=== PATIENT | male | born 1940 | race Caucasian/White ===

== ENCOUNTER 2024-12-25 19:21 | Inpatient (IN) ==
[2024-12-25 20:04] LABS: Hematocrit (blood only) 34.7 % (42.0-52.0); Hemoglobin 11.8 g/dl (14.0-18.0); Immature Granulocytes # (auto) 0.13 K/uL (0.01-0.20); Immature Granulocytes % (auto) 0.8 %; Mean Corpuscular Hemoglobin 34.1 pg (25.0-34.0); Mean Corpuscular Volume 100.3 fL (80.0-100.0); Platelet Count 301 K/uL (130-400); RDW Standard Deviation 50.4 fL (36.4-46.3); Red Blood Count 3.46 M/uL (4.70-6.10); White Blood Count 16.87 K/ul (4.8-10.8)
[2024-12-25 20:23] LABS: Anion Gap 10 (3-11); Blood Urea Nitrogen 40 mg/dl (6-23); Calcium 9.9 mg/dl (8.6-10.3); Carbon Dioxide 23 mmol/L (21-32); Chloride 97 mmol/L (98-107); Glucose 135 mg/dl (70-99(Fasting)); Potassium 4.5 mmol/L (3.5-5.1); Sodium 130 mmol/L (136-145)
[2024-12-25 20:30] LABS: Alanine Aminotransferase < 3 U/L (7-52); Albumin Globulin Ratio 0.9 (0.9-2); Albumin Level 3.6 gm/dl (3.4-5.0); Alkaline Phosphatase 83 U/L (34-104); Bilirubin,Total 1.0 mg/dl (0.2-1.0); Creatine Kinase 52 U/L (30-223); Globulin 3.9 gm/dl (2.5-4.0); Lipase 17 U/L (11-82); Total Protein 7.5 gm/dl (6.0-8.3)
--- NOTE | 2024-12-25 20:37 | CT Scan Report ---
Exam(s): CT HEAD Without Contrast EXAM: CT Head Without Intravenous Contrast CLINICAL HISTORY: Reason for exam: trauma. TECHNIQUE: Axial computed tomography images of the head/brain without intravenous contrast. CTDI is 35.65 mGy and DLP is 702.46 mGy-cm. Automated exposure control was utilized for the study. A dose lowering technique was utilized adhering to the principles of ALARA. Mild to moderate limited evaluation due to motion and technique. COMPARISON: None. FINDINGS: Brain: Small, subcortical right frontal infarct. No mass, edema, mass effect or acute infarct. No acute hemorrhage. Mild, chronic, nonspecific white matter disease. There is artifact limiting detail particularly in the posterior fossa. Ventricles: Ventriculomegaly and dilated temporal horns maybe on the basis of central atrophy, can not exclude a communicating hydrocephalus. Correlate clinically. No midline shift. Bones/joints: No skull fracture. Soft tissues: No scalp hematoma. Visualized Sinuses: Clear. Mastoid air cells: No mastoid effusion. IMPRESSION: 1. Nonspecific ventriculomegaly, query communicating hydrocephalus, versus atrophy with a central component. 2. Mild, chronic white matter disease and a small, chronic subcortical right frontal lobe infarct. 3. No skull fracture, bleed, or acute intracranial abnormality. Electronically signed by: Cyndi Banda M.D. 12/25/24 20:36 PM
--- NOTE | 2024-12-25 20:38 | XRay Report ---
Exam(s): XR PELVIS, 1-2 views EXAM: XR Pelvis, 1 or 2 Views CLINICAL HISTORY: Reason for exam: Trauma. TECHNIQUE: Frontal view of the pelvis. COMPARISON: No relevant prior studies available. FINDINGS: Bones/joints: Moderate degenerative change lower lumbar spine, sacroiliac and hip joints. No acute fracture. No dislocation. Soft tissues: Surgical clips and sutures right lower quadrant. IMPRESSION: 1. No fracture or acute bony abnormality. Electronically signed by: Cyndi Banda M.D. 12/25/24 20:37 PM
[2024-12-25 20:39] LABS: INR 1.1 (0.9-1.1); Partial Thromboplastin Time 31 Seconds (21-31); Prothrombin Time 11.5 Seconds (9.0-12.0)
[2024-12-25] MEDS: SODIUM CHLORIDE 0.9% 500 ML IV ONE (20:41)
--- NOTE | 2024-12-25 20:44 | XRay Report ---
Exam(s): XR CXR 1 VIEW EXAM: XR Chest, 1 View CLINICAL HISTORY: Reason for exam: Trauma. TECHNIQUE: Frontal view of the chest. COMPARISON: None. Reference is made to a follow-up chest CT. FINDINGS: Lungs/Pleural space: Emphysema. Mild, scattered interstitial thickening, nonspecific, maybe chronic. Small right mid lung granuloma. No focal consolidation, pleural fluid or pneumothorax. Heart: Moderate cardiomegaly. Mediastinum: Unremarkable. Bones/Soft Tissues: Left 4th rib fracture, mildly displaced. IMPRESSION: 1. LEFT 4th rib fracture. 2. Emphysema and presumed chronic scattered interstitial thickening in the lungs. 3. No pneumothorax or acute process in the chest. Electronically signed by: Cyndi Banda M.D. 12/25/24 20:43 PM
--- NOTE | 2024-12-25 20:58 | CT Scan Report ---
Exam(s): CT ABDOMEN + PELVIS Without Contrast EXAM: CT Abdomen and Pelvis Without Intravenous Contrast CLINICAL HISTORY: Reason for exam: trauma. TECHNIQUE: Axial computed tomography images of the abdomen and pelvis without intravenous contrast. CTDI is 11.31 mGy and DLP is 800.92 mGy-cm. Automated exposure control was utilized for the study. A dose lowering technique was utilized adhering to the principles of ALARA. Moderate limited evaluation due to arms in the field of view, external metal, breathing/motion and noncontrast technique. COMPARISON: None. FINDINGS: Liver: No injury. Gallbladder and bile ducts: Normal gallbladder. No ductal dilation. Pancreas: No ductal dilation. Spleen: No laceration. Adrenals: Unremarkable. Kidneys and ureters: No injury. Stomach and bowel: No obstruction. Intraperitoneal space: No free air or fluid. Bones/joints: No acute pelvic or vertebral fracture. Soft tissues: Probable 4-5 cm intramuscular gluteal hematoma on the right, though there is artifact from external metal, limiting evaluation. 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 Lymph nodes: No enlarged lymph nodes. Bladder: No injury. However, intermittent nodular density anterior midline mucosa, largest measuring 7 x 5 x 11 mm, nonspecific, could reflect normal variant anatomy, neoplasm not excluded. Reproductive: Unremarkable as visualized. IMPRESSION: 1. Right gluteal intramuscular hematoma. 2. Intermittent nodules anterior urinary bladder, nonspecific, could reflect normal variant anatomy, cystoscopy recommended to rule out neoplasm. 3. 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 4. No obvious signs to suggest posttraumatic injury in the abdomen or pelvis. 5. Moderate limited evaluation due to artifact and noncontrast technique. Electronically signed by: Cyndi Banda M.D. 12/25/24 20:58 PM
--- NOTE | 2024-12-25 21:03 | CT Scan Report ---
Exam(s): CT CHEST Without Contrast EXAM: CT Chest Without Intravenous Contrast CLINICAL HISTORY: Reason for exam: trauma. TECHNIQUE: Axial computed tomography images of the chest without intravenous contrast. CTDI is 11.31 mGy and DLP is 800.92 mGy-cm. Automated exposure control was utilized for the study. A dose lowering technique was utilized adhering to the principles of ALARA. Moderate artifact from bilateral arms in the field of view and breathing/motion. COMPARISON: Same day chest x-ray. FINDINGS: Lungs: 4 mm noncalcified pulmonary nodule right upper lobe anteriorly, axial 11/08. Since the nodule is smooth, no follow up necessary per Fleischner guidelines. Calcified granuloma right upper lobe. Emphysema and moderate scattered chronic interstitial thickening, predominantly lower lobe lungs. No consolidation. Pleural space: No effusion. No pneumothorax, with moderate limited evaluation for minimal disease due to artifact. Pulmonary arteries: No engorgement. Aorta: No aneurysm. Heart: Moderate cardiomegaly. No significant pericardial effusion. Bones/joints: LEFT 4th rib fracture mildly displaced. Nondisplaced left 3rd rib fracture. No other acute fracture. Soft tissues: Unremarkable. Lymph nodes: No enlarged lymph nodes. IMPRESSION: 1. No pneumothorax or acute intrathoracic abnormality. 2. LEFT 3rd and 4th rib fractures. 3. Emphysema and chronic interstitial lung disease. 4. 4 mm right upper lobe pulmonary nodule, no further workup needed. 5. Moderate motion/artifact limits evaluation. Electronically signed by: Cyndi Banda M.D. 12/25/24 21:02 PM
[2024-12-25 21:06] LABS: Appearance Urine Clear (Clear); Bacteria Urine Automated None Seen (None Seen); Cast Urine Automated >20 /lpf (0-2); Epithelial Cell Urine Auto 0-2 /hpf (0-2); Glucose Urine UA Negative (Negative); RBC Urine Automated 0-2 /hpf (0-2); WBC Urine Automated 0-5 /hpf (0-5)
[2024-12-25 21:37] LABS: Amphetamines+Metham, Urine Neg (Neg); MDMA (Ecstacy), Urine Neg (Neg); Marijuana, Urine Neg (Neg)
--- NOTE | 2024-12-25 21:55 | CT Scan Report ---
Exam(s): CT C SPINE EXAM: CT Cervical Spine Without Intravenous Contrast CLINICAL HISTORY: Reason for exam: Trauma. TECHNIQUE: Axial computed tomography images of the cervical spine without intravenous contrast. CTDI is 11.31 mGy and DLP is 800.92 mGy-cm. Automated exposure control was utilized for the study. A dose lowering technique was utilized adhering to the principles of ALARA. Mild motion artifact. COMPARISON: None. FINDINGS: Vertebrae: No acute fracture. Discs/spinal canal/neural foramina: Moderate to severe degenerative disc and facet disease. Soft tissues: Apical blebs and scarring on the right. IMPRESSION: 1. Moderate to severe degenerative change. 2. No fracture or acute bony abnormality. Electronically signed by: Cyndi Banda M.D. 12/25/24 21:54 PM
[2024-12-25] MEDS: SODIUM CHLORIDE 0.9% 1,000 ML IV SCH (23:41)
--- NOTE | 2024-12-25 23:58 | Emergency Department Note ---
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 Daughter states the patient has been falling more recently. She reports that the patient last fell yesterday. She states they went to an outside emergency department and did CT scans on her and discharged patient home. Daughter states the patient is too confused and weak. She states she is concerned the patient has a UTI. Daughter reports that the patient is DNR/DNI and she is the POA. Home Medications Medication Instructions Recorded Confirmed Type albuterol sulfate 90 mcg/actuation 2 inh inhalation Q4H PRN Shortness 12/25/24 12/25/24 History breath activated powder inhaler Of Breath Or Wheezing apixaban 5 mg tablet (Eliquis) 5 mg PO BID 12/25/24 12/25/24 History ascorbic acid (vitamin C) 250 mg 250 mg PO DAILY 12/25/24 12/25/24 History tablet carbidopa ER 50 mg-levodopa 200 mg 1 tab PO BID 12/25/24 12/25/24 History tablet,extended release carvedilol 3.125 mg tablet 3.125 mg PO BID 12/25/24 12/25/24 History cholecalciferol (vitamin D3) 50 50 mcg PO DAILY 12/25/24 12/25/24 History mcg (2,000 unit) tablet digoxin 125 mcg (0.125 mg) tablet 125 mcg PO HS 12/25/24 12/25/24 History fluticasone fur. 100 mcg-umeclid 1 inh inhalation DAILY 12/25/24 12/25/24 History 62.5 mcg-vilant 25 mcg inhalat.powder (Trelegy Ellipta) furosemide 40 mg tablet 40 mg PO DAILY 12/25/24 12/25/24 History glucosamine-chondroitin 250 mg-200 1 tab PO DAILY 12/25/24 12/25/24 History mg tablet lisinopril 2.5 mg tablet 2.5 mg PO DAILY 12/25/24 12/25/24 History multivitamin 1 tab PO DAILY 12/25/24 12/25/24 History niacin 1,000 mg tablet,extended 1,000 mg PO HS 12/25/24 12/25/24 History release 24 hr nitroglycerin 0.4 mg sublingual 0.4 mg sublingual UD 12/25/24 12/25/24 History tablet pantoprazole 40 mg tablet,delayed 40 mg PO DAILY 12/25/24 12/25/24 History release potassium chloride 10 mEq 10 meq PO DAILY 12/25/24 12/25/24 History tablet,extended release sertraline 100 mg tablet 100 mg PO DAILY 12/25/24 12/25/24 History simvastatin 40 mg tablet 40 mg PO HS 12/25/24 12/25/24 History Past Med/Surg History Problem List (Updated 12/26/24 @ 00:04 by Mukesh Hager MD) Frequent falls Medical History CAD (coronary artery disease) HLD (hyperlipidemia) Heart attack Parkinson disease Pneumothorax Atrial fibrillation Social History Smoking Status: Former smoker Tobacco Type: Cigarettes Preferred Language: Greenlandic Feels Safe at Home: Yes Physical Exam Vital Signs Vital Signs - 24 hr 12/25/24 19:29 12/25/24 19:54 12/25/24 19:54 Temperature 36.2 C L 36.5 C Temperature Source Temporal Artery Scan Pulse Rate 67 67 Pulse Rate [Apical] 67 Pulse Rate from SpO2 Sensor Pulse Rhythm Pulse Rhythm [Apical] Irregular Respiratory Rate 18 16 16 Respiratory Effort / Characteristics Non-Labored Spontaneous Non-Labored Spontaneous Respiratory Depth Normal Normal Respiratory Pattern Regular Regular Blood Pressure 93/55 L 129/62 Blood Pressure [Right Arm] 129/62 Blood Pressure Mean 67 Blood Pressure Mean [Right Arm] 84 Blood Pressure Position Sitting Pulse Oximetry 96 97 97 Oxygen Delivery Method Room Air Room Air Room Air Oxygen Flow Rate 0 Sepsis Recent Fever Within 48 Hours No Sepsis New/Unexplained Change in Mental Status No Sepsis Action Taken by Nursing No Action Required 12/25/24 19:54 12/25/24 20:18 12/25/24 20:20 Temperature Temperature Source Pulse Rate 57 L 61 Pulse Rate [Apical] Pulse Rate from SpO2 Sensor 71 59 L Pulse Rhythm Pulse Rhythm [Apical] Respiratory Rate 24 20 Respiratory Effort / Characteristics Respiratory Depth Respiratory Pattern Blood Pressure 105/40 L Blood Pressure [Right Arm] Blood Pressure Mean 69 Blood Pressure Mean [Right Arm] Blood Pressure Position Pulse Oximetry 83 L 99 Oxygen Delivery Method Oxygen Flow Rate Sepsis Recent Fever Within 48 Hours Sepsis New/Unexplained Change in Mental Status Sepsis Action Taken by Nursing 12/25/24 20:20 12/25/24 20:20 12/25/24 20:20 Temperature Temperature Source Pulse Rate Pulse Rate [Apical] Pulse Rate from SpO2 Sensor Pulse Rhythm Pulse Rhythm [Apical] Respiratory Rate Respiratory Effort / Characteristics Respiratory Depth Respiratory Pattern Blood Pressure 105/40 L 105/40 L 105/40 L Blood Pressure [Right Arm] Blood Pressure Mean 69 69 69 Blood Pressure Mean [Right Arm] Blood Pressure Position Pulse Oximetry Oxygen Delivery Method Oxygen Flow Rate Sepsis Recent Fever Within 48 Hours Sepsis New/Unexplained Change in Mental Status Sepsis Action Taken by Nursing 12/25/24 20:20 12/25/24 20:21 12/25/24 20:24 Temperature Temperature Source Pulse Rate 69 70 Pulse Rate [Apical] Pulse Rate from SpO2 Sensor 64 Pulse Rhythm Irregular Pulse Rhythm [Apical] Respiratory Rate 18 18 Respiratory Effort / Characteristics Respiratory Depth Respiratory Pattern Blood Pressure 105/40 L Blood Pressure [Right Arm] Blood Pressure Mean 69 Blood Pressure Mean [Right Arm] Blood Pressure Position Pulse Oximetry 93 94 Oxygen Delivery Method Room Air Oxygen Flow Rate Sepsis Recent Fever Within 48 Hours Sepsis New/Unexplained Change in Mental Status Sepsis Action Taken by Nursing 12/25/24 20:30 12/25/24 20:30 12/25/24 20:30 Temperature Temperature Source Pulse Rate Pulse Rate [Apical] Pulse Rate from SpO2 Sensor Pulse Rhythm Pulse Rhythm [Apical] Respiratory Rate Respiratory Effort / Characteristics Respiratory Depth Respiratory Pattern Blood Pressure 111/75 111/75 111/75 Blood Pressure [Right Arm] Blood Pressure Mean 78 78 78 Blood Pressure Mean [Right Arm] Blood Pressure Position Pulse Oximetry Oxygen Delivery Method Oxygen Flow Rate Sepsis Recent Fever Within 48 Hours Sepsis New/Unexplained Change in Mental Status Sepsis Action Taken by Nursing 12/25/24 20:30 12/25/24 20:30 12/25/24 20:30 Temperature Temperature Source Pulse Rate 64 Pulse Rate [Apical] Pulse Rate from SpO2 Sensor 66 Pulse Rhythm Pulse Rhythm [Apical] Respiratory Rate 24 Respiratory Effort / Characteristics Respiratory Depth Respiratory Pattern Blood Pressure 111/75 111/75 Blood Pressure [Right Arm] Blood Pressure Mean 78 78 Blood Pressure Mean [Right Arm] Blood Pressure Position Pulse Oximetry 90 Oxygen Delivery Method Oxygen Flow Rate Sepsis Recent Fever Within 48 Hours Sepsis New/Unexplained Change in Mental Status Sepsis Action Taken by Nursing 12/25/24 20:33 12/25/24 20:45 12/25/24 21:00 Temperature 36.5 C Temperature Source Oral Pulse Rate 67 70 Pulse Rate [Apical] 72 Pulse Rate from SpO2 Sensor 71 Pulse Rhythm Pulse Rhythm [Apical] Respiratory Rate 18 15 27 H Respiratory Effort / Characteristics Non-Labored Spontaneous Respiratory Depth Normal Respiratory Pattern Regular Blood Pressure Blood Pressure [Right Arm] 111/75 Blood Pressure Mean Blood Pressure Mean [Right Arm] 87 Blood Pressure Position Pulse Oximetry 94 77 L 74 L Oxygen Delivery Method Room Air Oxygen Flow Rate 0 Sepsis Recent Fever Within 48 Hours Sepsis New/Unexplained Change in Mental Status Sepsis Action Taken by Nursing 12/25/24 21:00 12/25/24 21:00 12/25/24 21:00 Temperature Temperature Source Pulse Rate Pulse Rate [Apical] Pulse Rate from SpO2 Sensor Pulse Rhythm Pulse Rhythm [Apical] Respiratory Rate Respiratory Effort / Characteristics Respiratory Depth Respiratory Pattern Blood Pressure 111/52 L 111/52 L 111/52 L Blood Pressure [Right Arm] Blood Pressure Mean 72 72 72 Blood Pressure Mean [Right Arm] Blood Pressure Position Pulse Oximetry Oxygen Delivery Method Oxygen Flow Rate Sepsis Recent Fever Within 48 Hours Sepsis New/Unexplained Change in Mental Status Sepsis Action Taken by Nursing 12/25/24 21:00 12/25/24 21:00 12/25/24 21:15 Temperature Temperature Source Pulse Rate 69 Pulse Rate [Apical] Pulse Rate from SpO2 Sensor 71 Pulse Rhythm Pulse Rhythm [Apical] Respiratory Rate 20 Respiratory Effort / Characteristics Respiratory Depth Respiratory Pattern Blood Pressure 111/52 L 111/52 L Blood Pressure [Right Arm] Blood Pressure Mean 72 72 Blood Pressure Mean [Right Arm] Blood Pressure Position Pulse Oximetry 91 Oxygen Delivery Method Oxygen Flow Rate Sepsis Recent Fever Within 48 Hours Sepsis New/Unexplained Change in Mental Status Sepsis Action Taken by Nursing 12/25/24 21:30 12/25/24 21:30 12/25/24 21:30 Temperature Temperature Source Pulse Rate 73 Pulse Rate [Apical] Pulse Rate from SpO2 Sensor 73 Pulse Rhythm Pulse Rhythm [Apical] Respiratory Rate 23 Respiratory Effort / Characteristics Respiratory Depth Respiratory Pattern Blood Pressure 120/60 120/60 Blood Pressure [Right Arm] Blood Pressure Mean 86 86 Blood Pressure Mean [Right Arm] Blood Pressure Position Pulse Oximetry 96 Oxygen Delivery Method Oxygen Flow Rate Sepsis Recent Fever Within 48 Hours Sepsis New/Unexplained Change in Mental Status Sepsis Action Taken by Nursing 12/25/24 21:30 12/25/24 21:30 12/25/24 21:30 Temperature Temperature Source Pulse Rate Pulse Rate [Apical] Pulse Rate from SpO2 Sensor Pulse Rhythm Pulse Rhythm [Apical] Respiratory Rate Respiratory Effort / Characteristics Respiratory Depth Respiratory Pattern Blood Pressure 120/60 120/60 120/60 Blood Pressure [Right Arm] Blood Pressure Mean 86 86 86 Blood Pressure Mean [Right Arm] Blood Pressure Position Pulse Oximetry Oxygen Delivery Method Oxygen Flow Rate Sepsis Recent Fever Within 48 Hours Sepsis New/Unexplained Change in Mental Status Sepsis Action Taken by Nursing 12/25/24 21:30 12/25/24 21:30 12/25/24 21:45 Temperature Temperature Source Pulse Rate 71 Pulse Rate [Apical] Pulse Rate from SpO2 Sensor 70 Pulse Rhythm Pulse Rhythm [Apical] Respiratory Rate 25 H Respiratory Effort / Characteristics Respiratory Depth Respiratory Pattern Blood Pressure 120/60 120/60 Blood Pressure [Right Arm] Blood Pressure Mean 86 86 Blood Pressure Mean [Right Arm] Blood Pressure Position Pulse Oximetry 94 Oxygen Delivery Method Oxygen Flow Rate Sepsis Recent Fever Within 48 Hours Sepsis New/Unexplained Change in Mental Status Sepsis Action Taken by Nursing 12/25/24 22:00 12/25/24 22:00 12/25/24 22:00 Temperature Temperature Source Pulse Rate 65 Pulse Rate [Apical] Pulse Rate from SpO2 Sensor 67 Pulse Rhythm Pulse Rhythm [Apical] Respiratory Rate 22 Respiratory Effort / Characteristics Respiratory Depth Respiratory Pattern Blood Pressure 109/55 L 109/55 L Blood Pressure [Right Arm] Blood Pressure Mean 87 87 Blood Pressure Mean [Right Arm] Blood Pressure Position Pulse Oximetry 96 Oxygen Delivery Method Oxygen Flow Rate Sepsis Recent Fever Within 48 Hours Sepsis New/Unexplained Change in Mental Status Sepsis Action Taken by Nursing 12/25/24 22:00 12/25/24 22:00 12/25/24 22:00 Temperature Temperature Source Pulse Rate Pulse Rate [Apical] Pulse Rate from SpO2 Sensor Pulse Rhythm Pulse Rhythm [Apical] Respiratory Rate Respiratory Effort / Characteristics Respiratory Depth Respiratory Pattern Blood Pressure 109/55 L 109/55 L 109/55 L Blood Pressure [Right Arm] Blood Pressure Mean 87 87 87 Blood Pressure Mean [Right Arm] Blood Pressure Position Pulse Oximetry Oxygen Delivery Method Oxygen Flow Rate Sepsis Recent Fever Within 48 Hours Sepsis New/Unexplained Change in Mental Status Sepsis Action Taken by Nursing 12/25/24 22:15 Temperature Temperature Source Pulse Rate 74 Pulse Rate [Apical] Pulse Rate from SpO2 Sensor 74 Pulse Rhythm Pulse Rhythm [Apical] Respiratory Rate 24 Respiratory Effort / Characteristics Respiratory Depth Respiratory Pattern Blood Pressure Blood Pressure [Right Arm] Blood Pressure Mean Blood Pressure Mean [Right Arm] Blood Pressure Position Pulse Oximetry 95 Oxygen Delivery Method Oxygen Flow Rate Sepsis Recent Fever Within 48 Hours Sepsis New/Unexplained Change in Mental Status Sepsis Action Taken by Nursing Primary Survey Airway: Intact Breathing: Normal, breath sounds equal bilaterally Circulation: Skin warm, distal pulses 2+, capillary refill less than 2 seconds Disability Pupils: Equal and reactive to light, 2 mm, brisk GCS: 15, E = 4 V=5 M= 6 Motor Function: Moves all extremities. Sensory: No deficits Secondary Survey HEAD: Normocephallic atruamatic EYES: Pupils round reactive to light, conjunctiva clear, extraocular movements intact, no raccoons eyes ENT: no benavides's sign, nares patent, oropharynx clear NECK: No JVD, midline trachea, no cervical spine tenderness HEART: Irregular rate and rhythm LUNGS: Clear to auscultation bilaterally. CHEST: Chest wall non-tender, no bruising/deformity ABD: soft, non-tender, no rebound or guarding, MUSC: Pelvis stable. NEURO: CNII-XII grossly intact, no sensory deficits difficulty ambulating. SKIN: Ecchymoses over the patient's bilateral upper and lower extremities. Ecchymoses over the left thoracic paraspinal area. Course Course 1935: The patient was evaluated in room C10. A complete history and physical exam was performed Cardiac monitoring: An order was placed for continuous cardiac monitoring. The monitor shows a rate of 60 with atrial fibrilation rhythm interpreted by [facility] trauma alert activated. 2257: Vital signs stable. Labs show leukocytosis 16.87. Hemoglobin 11.8. Coagulation studies are unremarkable. Creatinine of 1.9. Daughter reports no history of CKD. Urinalysis unremarkable. CT chest shows left 3rd and 4th rib fracture. 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 head shows no skull fracture or ICH but does show nonspecific ventriculomegaly. CT C-spine negative. Discussed the patient's case with Dr. Sabillon on-call vascular surgery. 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 He states there is no need for emergent surgical intervention for this. [facility]. Administered Medications Sodium Chloride (Nss) 1,000 mls @ 125 mls/hr IV .Q8H GHISLAINE Stop: 12/28/24 22:44 Last Admin: 12/25/24 23:41 Dose: 125 mls/hr Documented By: RAVI Discontinued Medications Sodium Chloride (Nss) 500 mls @ 999 mls/hr IV .Q31M ONE Stop: 12/25/24 20:13 Last Infusion: 12/25/24 21:31 Dose: Infused Documented By: mls Admin: 12/25/24 20:41 Dose: 999 mls/hr Documented By: [email or web address] Critical Care Time Critical Care Time: Yes Total Critical Care Time: 40 I have personally spent greater than 40 minutes of critical care time in the direct management of this patient. This includes bedside care, interpretation of diagnostic studies, and testing, discussion with consultants, patient, and family members, and other required patient management activities. This 40 minutes is in excess of all separately billable procedures. Medical Decision Making Laboratory Data Attestation: I reviewed the patient's lab results. 12/25/24 19:47 12/25/24 19:47 Lab Results 12/25/24 12/25/24 12/25/24 Range/Units 19:47 19:50 19:54 WBC 16.87 H (4.8-10.8) K/ul RBC 3.46 L (4.70-6.10) M/uL Hgb 11.8 L (14.0-18.0) g/dl POC Hgb 12.9 L (14.0-18.0) g/dl Hct 34.7 L (42.0-52.0) % POC Hct 38 L (42-52) % MCV 100.3 H (80.0-100.0) fL MCH 34.1 H (25.0-34.0) pg MCHC 34.0 (32.0-36.0) g/dL RDW Std Deviation 50.4 H (36.4-46.3) fL RDW Coeff of Kandsi 13.7 (11.5-14.5) % Plt Count 301 (130-400) K/uL MPV 9.1 L (9.4-12.4) fL Immature Gran % (Auto) 0.8 % Neut % (Auto) 78.7 % Lymph % (Auto) 12.2 % [place] % (Auto) 7.5 % Eos % (Auto) 0.5 % Baso % (Auto) 0.3 % Neut # (Auto) 13.29 H (1.40-6.50) K/uL Lymph # (Auto) 2.06 (1.20-3.40) K/uL [place] # (Auto) 1.26 H (0.11-0.59) K/uL Eos # (Auto) 0.08 (0.00-0.50) K/uL Baso # (Auto) 0.05 (0.00-0.20) K/uL Immature Gran # (Auto) 0.13 (0.01-0.20) K/uL PT 11.5 (9.0-12.0) Seconds INR 1.1 (0.9-1.1) APTT 31 (21-31) Seconds PTT Ratio 1.1 POC Sodium 131 L (135-144) mmol/L Sodium 130 L (136-145) mmol/L POC Potassium 4.5 (3.3-5.0) mmol/L Potassium 4.5 (3.5-5.1) mmol/L POC Chloride 99 L (101-112) mmol/L Chloride 97 L (98-107) mmol/L Carbon Dioxide 23 (21-32) mmol/L POC Total CO2 22 L (24-31) mmol/L Anion Gap 10 (3-11) POC Anion Gap 16.0 (16-25) mmol/L POC BUN 36 H (7-18) mg/dl BUN 40 H (6-23) mg/dl Creatinine 1.90 H (0.6-1.4) mg/dl POC Creatinine 2.2 H (0.6-1.3) mg/dl Est Cr Clr Drug Dosing Not Reportable eGFR 33.93 BUN/Creatinine Ratio 21.1 H (10-20) Glucose 135 H (70-99(Fasting)) mg/dl POC Glucose (other) 129 H (70-99) mg/dl Lactate 1.9 (0.4-2.0) mmol/L Calcium 9.9 (8.6-10.3) mg/dl POC Ioniz Calcium Jaya 1.24 (1.12-1.32) mmol/l Total Bilirubin 1.0 (0.2-1.0) mg/dl AST 20 (13-39) U/L ALT < 3 L (7-52) U/L Alkaline Phosphatase 83 (34-104) U/L Total Creatine Kinase 52 (30-223) U/L Troponin I High Sens 18.7 (0-20) pg/ml Total Protein 7.5 (6.0-8.3) gm/dl Albumin 3.6 (3.4-5.0) gm/dl Globulin 3.9 (2.5-4.0) gm/dl Albumin/Globulin Ratio 0.9 (0.9-2) Lipase 17 (11-82) U/L Procalcitonin 0.34 (0-0.5) ng/ml Urine Color Urine Appearance (Clear) Urine pH (4.5-7.5) Ur Specific [place] (1.000-1.030) Urine Protein (Negative) Urine Glucose (UA) (Negative) Urine Ketones (Negative) Urine Blood (Negative) Urine Nitrite (Negative) Urine Bilirubin (Negative) Urine Urobilinogen (Negative) Ur Leukocyte Esterase (Negative) Urine WBC (Auto) (0-5) /hpf Urine RBC (Auto) (0-2) /hpf U Hyaline Cast (Auto) (0-2) /lpf U Epithel Cells (Auto) (0-2) /hpf Urine Bacteria (Auto) (None Seen) Hyaline Casts (None Presnt) /lpf Urine Comment Urine Opiates Screen (Neg) Ur Methadone, Qual (Neg) Urine Fentanyl Screen (Neg) Urine Barbiturates (Neg) Ur Phencyclidine (PCP) (Neg) U Amphetamin/Meth Scrn (Neg) MDMA (Ecstasy) Screen (Neg) U Benzodiazepines Scrn (Neg) Ur Cocaine Metabolite (Neg) U Marijuana (THC) Screen (Neg) Ethyl Alcohol mg/dL (<10.0) mg/dl Blood Type A Positive Antibody Screen NEGATIVE 12/25/24 12/25/24 Range/Units 20:44 Unknown WBC (4.8-10.8) K/ul RBC (4.70-6.10) M/uL Hgb (14.0-18.0) g/dl POC Hgb (14.0-18.0) g/dl Hct (42.0-52.0) % POC Hct (42-52) % MCV (80.0-100.0) fL MCH (25.0-34.0) pg MCHC (32.0-36.0) g/dL RDW Std Deviation (36.4-46.3) fL RDW Coeff of Kandis (11.5-14.5) % Plt Count (130-400) K/uL MPV (9.4-12.4) fL Immature Gran % (Auto) % Neut % (Auto) % Lymph % (Auto) % [place] % (Auto) % Eos % (Auto) % Baso % (Auto) % Neut # (Auto) (1.40-6.50) K/uL Lymph # (Auto) (1.20-3.40) K/uL [place] # (Auto) (0.11-0.59) K/uL Eos # (Auto) (0.00-0.50) K/uL Baso # (Auto) (0.00-0.20) K/uL Immature Gran # (Auto) (0.01-0.20) K/uL PT (9.0-12.0) Seconds INR (0.9-1.1) APTT (21-31) Seconds PTT Ratio POC Sodium (135-144) mmol/L Sodium (136-145) mmol/L POC Potassium (3.3-5.0) mmol/L Potassium (3.5-5.1) mmol/L POC Chloride (101-112) mmol/L Chloride (98-107) mmol/L Carbon Dioxide (21-32) mmol/L POC Total CO2 (24-31) mmol/L Anion Gap (3-11) POC Anion Gap (16-25) mmol/L POC BUN (7-18) mg/dl BUN (6-23) mg/dl Creatinine (0.6-1.4) mg/dl POC Creatinine (0.6-1.3) mg/dl Est Cr Clr Drug Dosing eGFR BUN/Creatinine Ratio (10-20) Glucose (70-99(Fasting)) mg/dl POC Glucose (other) (70-99) mg/dl Lactate (0.4-2.0) mmol/L Calcium (8.6-10.3) mg/dl POC Ioniz Calcium Jaya (1.12-1.32) mmol/l Total Bilirubin (0.2-1.0) mg/dl AST (13-39) U/L ALT (7-52) U/L Alkaline Phosphatase (34-104) U/L Total Creatine Kinase (30-223) U/L Troponin I High Sens (0-20) pg/ml Total Protein (6.0-8.3) gm/dl Albumin (3.4-5.0) gm/dl Globulin (2.5-4.0) gm/dl Albumin/Globulin Ratio (0.9-2) Lipase (11-82) U/L Procalcitonin (0-0.5) ng/ml Urine Color Dark Yellow Urine Appearance Clear (Clear) Urine pH 5.0 (4.5-7.5) Ur Specific [place] 1.020 (1.000-1.030) Urine Protein Negative (Negative) Urine Glucose (UA) Negative (Negative) Urine Ketones Trace H (Negative) Urine Blood Negative (Negative) Urine Nitrite Negative (Negative) Urine Bilirubin Negative (Negative) Urine Urobilinogen Negative (Negative) Ur Leukocyte Esterase Trace H (Negative) Urine WBC (Auto) 0-5 (0-5) /hpf Urine RBC (Auto) 0-2 (0-2) /hpf U Hyaline Cast (Auto) >20 H (0-2) /lpf U Epithel Cells (Auto) 0-2 (0-2) /hpf Urine Bacteria (Auto) None Seen (None Seen) Hyaline Casts Present A (None Presnt) /lpf Urine Comment Urine Opiates Screen Neg (Neg) Ur Methadone, Qual Neg (Neg) Urine Fentanyl Screen Neg (Neg) Urine Barbiturates Neg (Neg) Ur Phencyclidine (PCP) Neg (Neg) U Amphetamin/Meth Scrn Neg (Neg) MDMA (Ecstasy) Screen Neg (Neg) U Benzodiazepines Scrn Pos H (Neg) Ur Cocaine Metabolite Neg (Neg) U Marijuana (THC) Screen Neg (Neg) Ethyl Alcohol mg/dL < 10.0 (<10.0) mg/dl Blood Type Antibody Screen Imaging Data Attestation: I personally reviewed and interpreted this imaging study as follows: My Impression: Chest x-ray negative. Airway clear. No pneumothorax. No consolidation. No cardiomegaly or cephalization.. No free air under the diaphragm. No fractures of the skeletal structures. Radiologist's Impression: Cervical Spine CT 12/25/24 19:43 Exam(s): CT C SPINE EXAM: CT Cervical Spine Without Intravenous Contrast CLINICAL HISTORY: Reason for exam: Trauma. TECHNIQUE: Axial computed tomography images of the cervical spine without intravenous contrast. CTDI is 11.31 mGy and DLP is 800.92 mGy-cm. Automated exposure control was utilized for the study. A dose lowering technique was utilized adhering to the principles of ALARA. Mild motion artifact. COMPARISON: None. FINDINGS: Vertebrae: No acute fracture. Discs/spinal canal/neural foramina: Moderate to severe degenerative disc and facet disease. Soft tissues: Apical blebs and scarring on the right. IMPRESSION: 1. Moderate to severe degenerative change. 2. No fracture or acute bony abnormality. Electronically signed by: Cyndi Banda M.D. 12/25/24 21:54 PM Chest X-Ray 12/25/24 19:43 Exam(s): XR CXR 1 VIEW EXAM: XR Chest, 1 View CLINICAL HISTORY: Reason for exam: Trauma. TECHNIQUE: Frontal view of the chest. COMPARISON: None. Reference is made to a follow-up chest CT. FINDINGS: Lungs/Pleural space: Emphysema. Mild, scattered interstitial thickening, nonspecific, maybe chronic. Small right mid lung granuloma. No focal consolidation, pleural fluid or pneumothorax. Heart: Moderate cardiomegaly. Mediastinum: Unremarkable. Bones/Soft Tissues: Left 4th rib fracture, mildly displaced. IMPRESSION: 1. LEFT 4th rib fracture. 2. Emphysema and presumed chronic scattered interstitial thickening in the lungs. 3. No pneumothorax or acute process in the chest. Electronically signed by: Cyndi Banda M.D. 12/25/24 20:[address] 12/25/24 19:43 Exam(s): CT HEAD Without Contrast EXAM: CT Head Without Intravenous Contrast CLINICAL HISTORY: Reason for exam: trauma. TECHNIQUE: Axial computed tomography images of the head/brain without intravenous contrast. CTDI is 35.65 mGy and DLP is 702.46 mGy-cm. Automated exposure control was utilized for the study. A dose lowering technique was utilized adhering to the principles of ALARA. Mild to moderate limited evaluation due to motion and technique. COMPARISON: None. FINDINGS: Brain: Small, subcortical right frontal infarct. No mass, edema, mass effect or acute infarct. No acute hemorrhage. Mild, chronic, nonspecific white matter disease. There is artifact limiting detail particularly in the posterior fossa. Ventricles: Ventriculomegaly and dilated temporal horns maybe on the basis of central atrophy, can not exclude a communicating hydrocephalus. Correlate clinically. No midline shift. Bones/joints: No skull fracture. Soft tissues: No scalp hematoma. Visualized Sinuses: Clear. Mastoid air cells: No mastoid effusion. IMPRESSION: 1. Nonspecific ventriculomegaly, query communicating hydrocephalus, versus atrophy with a central component. 2. Mild, chronic white matter disease and a small, chronic subcortical right frontal lobe infarct. 3. No skull fracture, bleed, or acute intracranial abnormality. Electronically signed by: Cyndi Banda M.D. 12/25/24 20:36 PM Pelvis X-Ray 12/25/24 19:43 Exam(s): XR PELVIS, 1-2 views EXAM: XR Pelvis, 1 or 2 Views CLINICAL HISTORY: Reason for exam: Trauma. TECHNIQUE: Frontal view of the pelvis. COMPARISON: No relevant prior studies available. FINDINGS: Bones/joints: Moderate degenerative change lower lumbar spine, sacroiliac and hip joints. No acute fracture. No dislocation. Soft tissues: Surgical clips and sutures right lower quadrant. IMPRESSION: 1. No fracture or acute bony abnormality. Electronically signed by: Cyndi Banda M.D. 12/25/24 20:37 PM Abdomen/Pelvis CT 12/25/24 19:55 Exam(s): CT ABDOMEN + PELVIS Without Contrast EXAM: CT Abdomen and Pelvis Without Intravenous Contrast CLINICAL HISTORY: Reason for exam: trauma. TECHNIQUE: Axial computed tomography images of the abdomen and pelvis without intravenous contrast. CTDI is 11.31 mGy and DLP is 800.92 mGy-cm. Automated exposure control was utilized for the study. A dose lowering technique was utilized adhering to the principles of ALARA. Moderate limited evaluation due to arms in the field of view, external metal, breathing/motion and noncontrast technique. COMPARISON: None. FINDINGS: Liver: No injury. Gallbladder and bile ducts: Normal gallbladder. No ductal dilation. Pancreas: No ductal dilation. Spleen: No laceration. Adrenals: Unremarkable. Kidneys and ureters: No injury. Stomach and bowel: No obstruction. Intraperitoneal space: No free air or fluid. Bones/joints: No acute pelvic or vertebral fracture. Soft tissues: Probable 4-5 cm intramuscular gluteal hematoma on the right, though there is artifact from external metal, limiting evaluation. 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 Lymph nodes: No enlarged lymph nodes. Bladder: No injury. However, intermittent nodular density anterior midline mucosa, largest measuring 7 x 5 x 11 mm, nonspecific, could reflect normal variant anatomy, neoplasm not excluded. Reproductive: Unremarkable as visualized. IMPRESSION: 1. Right gluteal intramuscular hematoma. 2. Intermittent nodules anterior urinary bladder, nonspecific, could reflect normal variant anatomy, cystoscopy recommended to rule out neoplasm. 3. 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 4. No obvious signs to suggest posttraumatic injury in the abdomen or pelvis. 5. Moderate limited evaluation due to artifact and noncontrast technique. Electronically signed by: Cyndi Banda M.D. 12/25/24 20:[address] 12/25/24 19:55 Exam(s): CT CHEST Without Contrast EXAM: CT Chest Without Intravenous Contrast CLINICAL HISTORY: Reason for exam: trauma. TECHNIQUE: Axial computed tomography images of the chest without intravenous contrast. CTDI is 11.31 mGy and DLP is 800.92 mGy-cm. Automated exposure control was utilized for the study. A dose lowering technique was utilized adhering to the principles of ALARA. Moderate artifact from bilateral arms in the field of view and breathing/motion. COMPARISON: Same day chest x-ray. FINDINGS: Lungs: 4 mm noncalcified pulmonary nodule right upper lobe anteriorly, axial 11/08. Since the nodule is smooth, no follow up necessary per Fleischner guidelines. Calcified granuloma right upper lobe. Emphysema and moderate scattered chronic interstitial thickening, predominantly lower lobe lungs. No consolidation. Pleural space: No effusion. No pneumothorax, with moderate limited evaluation for minimal disease due to artifact. Pulmonary arteries: No engorgement. Aorta: No aneurysm. Heart: Moderate cardiomegaly. No significant pericardial effusion. Bones/joints: LEFT 4th rib fracture mildly displaced. Nondisplaced left 3rd rib fracture. No other acute fracture. Soft tissues: Unremarkable. Lymph nodes: No enlarged lymph nodes. IMPRESSION: 1. No pneumothorax or acute intrathoracic abnormality. 2. LEFT 3rd and 4th rib fractures. 3. Emphysema and chronic interstitial lung disease. 4. 4 mm right upper lobe pulmonary nodule, no further workup needed. 5. Moderate motion/artifact limits evaluation. Electronically signed by: Cyndi Banda M.D. 12/25/24 21:02 PM ECG Data Attestation: I personally reviewed and interpreted this ECG as follows: Rate (beats per minute): 57 Rhythm: + atrial fibrillation ECG Intervals/blocks: + Normal QRS and + Normal QT-c ECG ST segments: + Normal ST segments [facility] Narrative 1936: The patient was evaluated in room C10. A complete history and physical exam was performed Cardiac monitoring: An order was placed for continuous cardiac monitoring. The monitor shows a rate of 60 with atrial fibrilation rhythm interpreted by [facility] trauma alert activated. 2257: Vital signs stable. Labs show leukocytosis 16.87. Hemoglobin 11.8. Coagulation studies are unremarkable. Creatinine of 1.9. Daughter reports no history of CKD. Urinalysis unremarkable. CT chest shows left 3rd and 4th rib fracture. 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 head shows no skull fracture or ICH but does show nonspecific ventriculomegaly. CT C-spine negative. Discussed the patient's case with Dr. Sabillon on-call vascular surgery. 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 He states there is no need for emergent surgical intervention for this. [facility] Impression & Plan Recurrent falls, Closed rib fracture, KHUSHBOO (acute kidney injury), AAA (abdominal aortic aneurysm) Discharge Plan Visit Data Chief Complaint: Trauma Stated Complaint: FELL 3X, HEAD INJ, ON BT, CONFUSED, POSS UTI ED Provider: Lui Veliz Discharge Problem: Recurrent falls, Closed rib fracture, KHUSHBOO (acute kidney injury), AAA (abdominal aortic aneurysm) Patient Disposition: Admitted As Inpatient Condition: Fair Forms Stand Alone Forms: My [facility] Prescriptions Prescriptions: No Action multivitamin Tablet 1 tab PO DAILY furosemide 40 mg tablet 40 mg PO DAILY niacin 1,000 mg tablet extended release 24 hr 1,000 mg PO HS carbidopa-levodopa 50-200 mg tablet extended release 1 tab PO BID sertraline 100 mg tablet 100 mg PO DAILY potassium chloride 10 mEq tablet extended release 10 meq PO DAILY simvastatin 40 mg tablet 40 mg PO HS carvedilol 3.125 mg tablet 3.125 mg PO BID ascorbic acid (vitamin C) 250 mg Tablet 250 mg PO DAILY pantoprazole 40 mg tablet,delayed release (DR/EC) 40 mg PO DAILY nitroglycerin 0.4 mg Tablet, Sublingual 0.4 mg sublingual UD Rx Instructions: prn chest pain q 5min x3 times and to call 911 digoxin 125 mcg (0.125 mg) tablet 125 mcg PO HS lisinopril 2.5 mg tablet 2.5 mg PO DAILY glucosamine-chondroitin [Osteo Bi-Flex] 250-200 mg Tablet 1 tab PO DAILY cholecalciferol (vitamin D3) 50 mcg (2,000 unit) Tablet 50 mcg PO DAILY Eliquis 5 mg tablet 5 mg PO BID albuterol sulfate 90 mcg/actuation Aerosol Powdr Breath Activated 2 inh INHALATION Q4H PRN (Reason: Shortness Of Breath Or Wheezing) Trelegy Ellipta 100-62.5-25 mcg blister with device 1 inh INHALATION DAILY Referrals Referrals: Mason Chen MD [Primary Care Provider] - Discharge Problem: Closed rib fracture Qualifiers: Encounter type: initial encounter Rib fracture type: multiple ribs Laterality: left Qualified Code(s): S22.42XA - Multiple fractures of ribs, left side, initial encounter for closed fracture
--- NOTE | 2024-12-26 | History & Physical Report ---
Date of Service December 25, 2024 Assessment & Plan (1) Frequent falls: Plan: 84-year-old male with past medical history significant for CAD status post stents, A-fib, questionable Parkinson disease, hypertension, COPD, questionable CHF, GERD, hyperlipidemia, depression who lives alone and ambulates with rollator walker was brought in by daughter because of frequent falls and confusion. Daughter states last 1 month he fell 6 times. Yesterday after falling down he seemed somewhat confused and was taken to [facility]. After coming back home patient was hallucinating per daughter. He was seeing things in the house. Daughter was concerned something else was going on or possible infection and she brought him to the hospital today. As per daughter patient has no dementia. Patient is eating okay but daughter thinks he might be having some trouble swallowing. No recent fevers. No cough. Patient complain of some chest pain in his ribs area. No shortness of breath. No abdominal pain. Normal bowel and bladder movements. No runny nose or sore throat. Patient seems comfortable. Hemodynamics are okay. As per daughter patient currently drinking 1 beer daily and also 1 cup of whiskey daily. Daughter does not think that he will go through withdrawal. Patient PCP is Kael Wharton. 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 Pelvic x-ray no fractures CT head nonspecific ventriculomegaly query communicating hydrocephalus versus atrophy Cervical spine CT no acute fractures Pain control PT OT when stable Will consult vascular surgery, urology and neurology based on the imaging studies Leukocytosis UA okay CT chest no obvious pneumonia Will follow blood cultures Empiric Rocephin for now Will follow labs Anemia Hemoglobin 11.8 Do not have baseline labs Will check iron studies, vitamin B12 and folate levels stool for hemeoccult [id number] versus CKD Creatinine 1.9 Do not know baseline labs Holding Lasix and potassium supplement and also holding lisinopril Getting gentle fluids for 1 L Will follow repeat labs Alcoholism As per daughter patient drinks 1 beer daily and also 1 cup of whiskey daily Daughter does not think that he will go through withdrawal Will place on low risk alcohol protocol with as needed Ativan and monitor Will give him thiamine and folic acid Hyponatremia Sodium 130 Getting gentle fluids Will follow repeat labs History of CAD status post stents On Coreg, Eliquis and statin History of A-fib On Coreg, digoxin and Eliquis Hypertension On Coreg Holding Lasix and lisinopril Will monitor Hyperlipidemia Statin Depression On Zoloft History of COPD Continue home inhalers Questionable Parkinson's Daughter does not think that he has Parkinson's Carbidopa and levodopa was prescribed for his tremors for possible Parkinson's per daughter Dysphagia? per daughter possible difficulty swallowing will consult speech Possible CHF Patient is on Lasix which is held for now Monitor for volume overload Will follow echo DVT prophylaxis On Eliquis Disposition Med/telemetry CODE STATUS okay for CPR but no life support as per my discussion with the daughter History of Present Illness Chief Complaint: Frequent falls and confusion Primary Care Provider: Mason Chen MD 84-year-old male with past medical history significant for CAD status post stents, A-fib, questionable Parkinson disease, hypertension, COPD, questionable CHF, GERD, hyperlipidemia, depression who lives alone and ambulates with rollator walker was brought in by daughter because of frequent falls and confusion. Daughter states last 1 month he fell 6 times. Yesterday after falling down he seemed somewhat confused and was taken to [facility]. After coming back home patient was hallucinating per daughter. He was seeing things in the house. Daughter was concerned something else was going on or possible infection and she brought him to the hospital today. As per daughter patient has no dementia. Patient is eating okay but daughter thinks he might be having some trouble swallowing. No recent fevers. No cough. Patient complain of some chest pain in his ribs area. No shortness of breath. No abdominal pain. Normal bowel and bladder movements. No runny nose or sore throat. Patient seems comfortable. Hemodynamics are okay. As per daughter patient currently drinking 1 beer daily and also 1 cup of whiskey daily. Daughter does not think that he will go through withdrawal. Patient PCP is Kael Wharton. Past medical history. As mentioned above. Past surgical history. Cardiac stent placement. Repair of ruptured lung twice. Cholecystectomy. Social history. Quit smoking . Prior to that smoked for many years. As per daughter currently drinks 1 beer daily and 1 cup of whiskey daily. Family history. Mother had pancreatic cancer. Sister had cancer. Allergies Allergy/AdvReac Type Severity Reaction Status Date / Time No Known Allergies Allergy Verified 12/26/24 02:14 Home Medications Medication Instructions Recorded Confirmed Type albuterol sulfate 90 mcg/actuation 2 inh inhalation Q4H PRN Shortness 12/25/24 12/25/24 History breath activated powder inhaler Of Breath Or Wheezing apixaban 5 mg tablet (Eliquis) 5 mg PO BID 12/25/24 12/25/24 History ascorbic acid (vitamin C) 250 mg 250 mg PO DAILY 12/25/24 12/25/24 History tablet carbidopa ER 50 mg-levodopa 200 mg 1 tab PO BID 12/25/24 12/25/24 History tablet,extended release carvedilol 3.125 mg tablet 3.125 mg PO BID 12/25/24 12/25/24 History cholecalciferol (vitamin D3) 50 50 mcg PO DAILY 12/25/24 12/25/24 History mcg (2,000 unit) tablet digoxin 125 mcg (0.125 mg) tablet 125 mcg PO HS 12/25/24 12/25/24 History fluticasone fur. 100 mcg-umeclid 1 inh inhalation DAILY 12/25/24 12/25/24 History 62.5 mcg-vilant 25 mcg inhalat.powder (Trelegy Ellipta) furosemide 40 mg tablet 40 mg PO DAILY 12/25/24 12/25/24 History glucosamine-chondroitin 250 mg-200 1 tab PO DAILY 12/25/24 12/25/24 History mg tablet lisinopril 2.5 mg tablet 2.5 mg PO DAILY 12/25/24 12/25/24 History multivitamin 1 tab PO DAILY 12/25/24 12/25/24 History niacin 1,000 mg tablet,extended 1,000 mg PO HS 12/25/24 12/25/24 History release 24 hr nitroglycerin 0.4 mg sublingual 0.4 mg sublingual UD 12/25/24 12/25/24 History tablet pantoprazole 40 mg tablet,delayed 40 mg PO DAILY 12/25/24 12/25/24 History release potassium chloride 10 mEq 10 meq PO DAILY 12/25/24 12/25/24 History tablet,extended release sertraline 100 mg tablet 100 mg PO DAILY 12/25/24 12/25/24 History simvastatin 40 mg tablet 40 mg PO HS 12/25/24 12/25/24 History Past Med/Surg History Problem List (Updated 12/26/24 @ 00:04 by Mukesh Hager MD) Frequent falls Medical History CAD (coronary artery disease) HLD (hyperlipidemia) Heart attack Parkinson disease Pneumothorax Atrial fibrillation Social History Smoking Status: Former smoker Tobacco Type: Cigarettes Hx Alcohol Use: Yes Alcohol type: beer and hard liquor Hx Substance Use: No Preferred Language: [place]er Communication Ability: Impaired 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 ENT- oropharynx clear Neck- supple, no JVD. Lungs- clear to auscultation no wheezing or crackles Heart- regular rhythm; no murmur, no gallop. Abdomen- normal bowel sounds, soft, nontender, no distension Extremities-b/l lower extremity edema present, no erythema seen Neuro- alert, oriented PERRL, no facial palsy; no dysarthria;obeys simple commands , moves extremities Results & Data Results & Data Vital Signs (Past 12 Hours) Vital Signs Temp Pulse Pulse Resp BP BP Pulse Ox 12/25/24 22:15 74 24 95 12/25/24 22:00 109/55 L 12/25/24 22:00 109/55 L 12/25/24 22:00 109/55 L 12/25/24 22:00 109/55 L 12/25/24 22:00 109/55 L 12/25/24 22:00 65 22 96 12/25/24 21:45 71 25 H 94 12/25/24 21:30 120/60 12/25/24 21:30 120/60 12/25/24 21:30 120/60 12/25/24 21:30 120/60 12/25/24 21:30 120/60 12/25/24 21:30 120/60 12/25/24 21:30 120/60 12/25/24 21:30 73 23 96 12/25/24 21:15 69 20 91 12/25/24 21:00 111/52 L 12/25/24 21:00 111/52 L 12/25/24 21:00 111/52 L 12/25/24 21:00 111/52 L 12/25/24 21:00 111/52 L 12/25/24 21:00 70 27 H 74 L 12/25/24 20:45 67 15 77 L 12/25/24 20:33 36.5 C 72 18 111/75 94 12/25/24 20:30 64 24 90 12/25/24 20:30 111/75 12/25/24 20:30 111/75 12/25/24 20:30 111/75 12/25/24 20:30 111/75 12/25/24 20:30 111/75 12/25/24 20:24 70 18 94 12/25/24 20:21 69 18 93 12/25/24 20:20 105/40 L 12/25/24 20:20 105/40 L 12/25/24 20:20 105/40 L 12/25/24 20:20 105/40 L 12/25/24 20:20 105/40 L 12/25/24 20:18 61 20 99 12/25/24 19:54 57 L 24 83 L 12/25/24 19:54 67 16 129/62 97 12/25/24 19:54 36.5 C 67 16 129/62 97 12/25/24 19:29 36.2 C L 67 18 93/55 L 96 O2 Del Method O2 Flow Rate 12/25/24 22:15 12/25/24 22:00 12/25/24 22:00 12/25/24 22:00 12/25/24 22:00 12/25/24 22:00 12/25/24 22:00 12/25/24 21:45 12/25/24 21:30 12/25/24 21:30 12/25/24 21:30 12/25/24 21:30 12/25/24 21:30 12/25/24 21:30 12/25/24 21:30 12/25/24 21:30 12/25/24 21:15 12/25/24 21:00 12/25/24 21:00 12/25/24 21:00 12/25/24 21:00 12/25/24 21:00 12/25/24 21:00 12/25/24 20:45 12/25/24 20:33 Room Air 0 12/25/24 20:30 12/25/24 20:30 12/25/24 20:30 12/25/24 20:30 12/25/24 20:30 12/25/24 20:30 12/25/24 20:24 Room Air 12/25/24 20:21 12/25/24 20:20 12/25/24 20:20 12/25/24 20:20 12/25/24 20:20 12/25/24 20:20 12/25/24 20:18 12/25/24 19:54 12/25/24 19:54 Room Air 12/25/24 19:54 Room Air 0 12/25/24 19:29 Room Air Diagnostic Findings Laboratory Results WBC 16.87 K/ul (4.8-10.8) H 12/25/24 19:47 RBC 3.46 M/uL (4.70-6.10) L 12/25/24 19:47 Hgb 11.8 g/dl (14.0-18.0) L 12/25/24 19:47 POC Hgb 12.9 g/dl (14.0-18.0) L 12/25/24 19:54 Hct 34.7 % (42.0-52.0) L 12/25/24 19:47 POC Hct 38 % (42-52) L 12/25/24 19:54 MCV 100.3 fL (80.0-100.0) H 12/25/24 19:47 MCH 34.1 pg (25.0-34.0) H 12/25/24 19:47 MCHC 34.0 g/dL (32.0-36.0) 12/25/24 19:47 RDW Std Deviation 50.4 fL (36.4-46.3) H 12/25/24 19:47 RDW Coeff of Kandis 13.7 % (11.5-14.5) 12/25/24 19:47 Plt Count 301 K/uL (130-400) 12/25/24 19:47 MPV 9.1 fL (9.4-12.4) L 12/25/24 19:47 Immature Gran % (Auto) 0.8 % 12/25/24 19:47 Neut % (Auto) 78.7 % 12/25/24 19:47 Lymph % (Auto) 12.2 % 12/25/24 19:47 Waldo % (Auto) 7.5 % 12/25/24 19:47 Eos % (Auto) 0.5 % 12/25/24 19:47 Baso % (Auto) 0.3 % 12/25/24 19:47 Neut # (Auto) 13.29 K/uL (1.40-6.50) H 12/25/24 19:47 Lymph # (Auto) 2.06 K/uL (1.20-3.40) 12/25/24 19:47 Waldo # (Auto) 1.26 K/uL (0.11-0.59) H 12/25/24 19:47 Eos # (Auto) 0.08 K/uL (0.00-0.50) 12/25/24 19:47 Baso # (Auto) 0.05 K/uL (0.00-0.20) 12/25/24 19:47 Immature Gran # (Auto) 0.13 K/uL (0.01-0.20) 12/25/24 19:47 PT 11.5 Seconds (9.0-12.0) 12/25/24 19:47 INR 1.1 (0.9-1.1) 12/25/24 19:47 APTT 31 Seconds (21-31) 12/25/24 19:47 PTT Ratio 1.1 12/25/24 19:47 POC Sodium 131 mmol/L (135-144) L 12/25/24 19:54 Sodium 130 mmol/L (136-145) L 12/25/24 19:47 POC Potassium 4.5 mmol/L (3.3-5.0) 12/25/24 19:54 Potassium 4.5 mmol/L (3.5-5.1) 12/25/24 19:47 POC Chloride 99 mmol/L (101-112) L 12/25/24 19:54 Chloride 97 mmol/L (98-107) L 12/25/24 19:47 Carbon Dioxide 23 mmol/L (21-32) 12/25/24 19:47 POC Total CO2 22 mmol/L (24-31) L 12/25/24 19:54 Anion Gap 10 (3-11) 12/25/24 19:47 POC Anion Gap 16.0 mmol/L (16-25) 12/25/24 19:54 POC BUN 36 mg/dl (7-18) H 12/25/24 19:54 BUN 40 mg/dl (6-23) H 12/25/24 19:47 Creatinine 1.90 mg/dl (0.6-1.4) H 12/25/24 19:47 POC Creatinine 2.2 mg/dl (0.6-1.3) H 12/25/24 19:54 Est Cr Clr Drug Dosing Not Reportable 12/25/24 19:47 eGFR 33.93 12/25/24 19:47 BUN/Creatinine Ratio 21.1 (10-20) H 12/25/24 19:47 Glucose 135 mg/dl (70-99(Fasting)) H 12/25/24 19:47 POC Glucose (other) 129 mg/dl (70-99) H 12/25/24 19:54 Lactate 1.9 mmol/L (0.4-2.0) 12/25/24 19:47 Calcium 9.9 mg/dl (8.6-10.3) 12/25/24 19:47 POC Ioniz Calcium Jaya 1.24 mmol/l (1.12-1.32) 12/25/24 19:54 Total Bilirubin 1.0 mg/dl (0.2-1.0) 12/25/24 19:47 AST 20 U/L (13-39) 12/25/24 19:47 ALT < 3 U/L (7-52) L 12/25/24 19:47 Alkaline Phosphatase 83 U/L (34-104) 12/25/24 19:47 Total Creatine Kinase 52 U/L (30-223) 12/25/24 19:47 Troponin I High Sens 18.7 pg/ml (0-20) 12/25/24 19:47 Total Protein 7.5 gm/dl (6.0-8.3) 12/25/24 19:47 Albumin 3.6 gm/dl (3.4-5.0) 12/25/24 19:47 Globulin 3.9 gm/dl (2.5-4.0) 12/25/24 19:47 Albumin/Globulin Ratio 0.9 (0.9-2) 12/25/24 19:47 Lipase 17 U/L (11-82) 12/25/24 19:47 Procalcitonin 0.34 ng/ml (0-0.5) 12/25/24 19:47 Urine Color Dark Yellow 12/25/24 Unknown Urine Appearance Clear (Clear) 12/25/24 Unknown Urine pH 5.0 (4.5-7.5) 12/25/24 Unknown Ur Specific Pratt 1.020 (1.000-1.030) 12/25/24 Unknown Urine Protein Negative (Negative) 12/25/24 Unknown Urine Glucose (UA) Negative (Negative) 12/25/24 Unknown Urine Ketones Trace (Negative) H 12/25/24 Unknown Urine Blood Negative (Negative) 12/25/24 Unknown Urine Nitrite Negative (Negative) 12/25/24 Unknown Urine Bilirubin Negative (Negative) 12/25/24 Unknown Urine Urobilinogen Negative (Negative) 12/25/24 Unknown Ur Leukocyte Esterase Trace (Negative) H 12/25/24 Unknown Urine WBC (Auto) 0-5 /hpf (0-5) 12/25/24 Unknown Urine RBC (Auto) 0-2 /hpf (0-2) 12/25/24 Unknown U Hyaline Cast (Auto) >20 /lpf (0-2) H 12/25/24 Unknown U Epithel Cells (Auto) 0-2 /hpf (0-2) 12/25/24 Unknown Urine Bacteria (Auto) None Seen (None Seen) 12/25/24 Unknown Hyaline Casts Present /lpf (None Presnt) A 12/25/24 Unknown Urine Comment 12/25/24 Unknown Urine Opiates Screen Neg (Neg) 12/25/24 Unknown Ur Methadone, Qual Neg (Neg) 12/25/24 Unknown Urine Fentanyl Screen Neg (Neg) 12/25/24 Unknown Urine Barbiturates Neg (Neg) 12/25/24 Unknown Ur Phencyclidine (PCP) Neg (Neg) 12/25/24 Unknown U Amphetamin/Meth Scrn Neg (Neg) 12/25/24 Unknown MDMA (Ecstasy) Screen Neg (Neg) 12/25/24 Unknown U Benzodiazepines Scrn Pos (Neg) H 12/25/24 Unknown Ur Cocaine Metabolite Neg (Neg) 12/25/24 Unknown U Marijuana (THC) Screen Neg (Neg) 12/25/24 Unknown Ethyl Alcohol mg/dL < 10.0 mg/dl (<10.0) 12/25/24 20:44 Blood Type A Positive 12/25/24 19:50 Antibody Screen NEGATIVE 12/25/24 19:[address] 12/25/24 19:43 Exam(s): CT C SPINE EXAM: CT Cervical Spine Without Intravenous Contrast CLINICAL HISTORY: Reason for exam: Trauma. TECHNIQUE: Axial computed tomography images of the cervical spine without intravenous contrast. CTDI is 11.31 mGy and DLP is 800.92 mGy-cm. Automated exposure control was utilized for the study. A dose lowering technique was utilized adhering to the principles of ALARA. Mild motion artifact. COMPARISON: None. FINDINGS: Vertebrae: No acute fracture. Discs/spinal canal/neural foramina: Moderate to severe degenerative disc and facet disease. Soft tissues: Apical blebs and scarring on the right. IMPRESSION: 1. Moderate to severe degenerative change. 2. No fracture or acute bony abnormality. Electronically signed by: Cyndi Banda M.D. 12/25/24 21:54 PM Chest X-Ray 12/25/24 19:43 Exam(s): XR CXR 1 VIEW EXAM: XR Chest, 1 View CLINICAL HISTORY: Reason for exam: Trauma. TECHNIQUE: Frontal view of the chest. COMPARISON: None. Reference is made to a follow-up chest CT. FINDINGS: Lungs/Pleural space: Emphysema. Mild, scattered interstitial thickening, nonspecific, maybe chronic. Small right mid lung granuloma. No focal consolidation, pleural fluid or pneumothorax. Heart: Moderate cardiomegaly. Mediastinum: Unremarkable. Bones/Soft Tissues: Left 4th rib fracture, mildly displaced. IMPRESSION: 1. LEFT 4th rib fracture. 2. Emphysema and presumed chronic scattered interstitial thickening in the lungs. 3. No pneumothorax or acute process in the chest. Electronically signed by: Cyndi Banda M.D. 12/25/24 20:[address] 12/25/24 19:43 Exam(s): CT HEAD Without Contrast EXAM: CT Head Without Intravenous Contrast CLINICAL HISTORY: Reason for exam: trauma. TECHNIQUE: Axial computed tomography images of the head/brain without intravenous contrast. CTDI is 35.65 mGy and DLP is 702.46 mGy-cm. Automated exposure control was utilized for the study. A dose lowering technique was utilized adhering to the principles of ALARA. Mild to moderate limited evaluation due to motion and technique. COMPARISON: None. FINDINGS: Brain: Small, subcortical right frontal infarct. No mass, edema, mass effect or acute infarct. No acute hemorrhage. Mild, chronic, nonspecific white matter disease. There is artifact limiting detail particularly in the posterior fossa. Ventricles: Ventriculomegaly and dilated temporal horns maybe on the basis of central atrophy, can not exclude a communicating hydrocephalus. Correlate clinically. No midline shift. Bones/joints: No skull fracture. Soft tissues: No scalp hematoma. Visualized Sinuses: Clear. Mastoid air cells: No mastoid effusion. IMPRESSION: 1. Nonspecific ventriculomegaly, query communicating hydrocephalus, versus atrophy with a central component. 2. Mild, chronic white matter disease and a small, chronic subcortical right frontal lobe infarct. 3. No skull fracture, bleed, or acute intracranial abnormality. Electronically signed by: Cyndi Banda M.D. 12/25/24 20:36 PM Pelvis X-Ray 12/25/24 19:43 Exam(s): XR PELVIS, 1-2 views EXAM: XR Pelvis, 1 or 2 Views CLINICAL HISTORY: Reason for exam: Trauma. TECHNIQUE: Frontal view of the pelvis. COMPARISON: No relevant prior studies available. FINDINGS: Bones/joints: Moderate degenerative change lower lumbar spine, sacroiliac and hip joints. No acute fracture. No dislocation. Soft tissues: Surgical clips and sutures right lower quadrant. IMPRESSION: 1. No fracture or acute bony abnormality. Electronically signed by: Cyndi Banda M.D. 12/25/24 20:37 PM Abdomen/Pelvis CT 12/25/24 19:55 Exam(s): CT ABDOMEN + PELVIS Without Contrast EXAM: CT Abdomen and Pelvis Without Intravenous Contrast CLINICAL HISTORY: Reason for exam: trauma. TECHNIQUE: Axial computed tomography images of the abdomen and pelvis without intravenous contrast. CTDI is 11.31 mGy and DLP is 800.92 mGy-cm. Automated exposure control was utilized for the study. A dose lowering technique was utilized adhering to the principles of ALARA. Moderate limited evaluation due to arms in the field of view, external metal, breathing/motion and noncontrast technique. COMPARISON: None. FINDINGS: Liver: No injury. Gallbladder and bile ducts: Normal gallbladder. No ductal dilation. Pancreas: No ductal dilation. Spleen: No laceration. Adrenals: Unremarkable. Kidneys and ureters: No injury. Stomach and bowel: No obstruction. Intraperitoneal space: No free air or fluid. Bones/joints: No acute pelvic or vertebral fracture. Soft tissues: Probable 4-5 cm intramuscular gluteal hematoma on the right, though there is artifact from external metal, limiting evaluation. 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 Lymph nodes: No enlarged lymph nodes. Bladder: No injury. However, intermittent nodular density anterior midline mucosa, largest measuring 7 x 5 x 11 mm, nonspecific, could reflect normal variant anatomy, neoplasm not excluded. Reproductive: Unremarkable as visualized. IMPRESSION: 1. Right gluteal intramuscular hematoma. 2. Intermittent nodules anterior urinary bladder, nonspecific, could reflect normal variant anatomy, cystoscopy recommended to rule out neoplasm. 3. 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 4. No obvious signs to suggest posttraumatic injury in the abdomen or pelvis. 5. Moderate limited evaluation due to artifact and noncontrast technique. Electronically signed by: Cyndi Banda M.D. 12/25/24 20:[address] 12/25/24 19:55 Exam(s): CT CHEST Without Contrast EXAM: CT Chest Without Intravenous Contrast CLINICAL HISTORY: Reason for exam: trauma. TECHNIQUE: Axial computed tomography images of the chest without intravenous contrast. CTDI is 11.31 mGy and DLP is 800.92 mGy-cm. Automated exposure control was utilized for the study. A dose lowering technique was utilized adhering to the principles of ALARA. Moderate artifact from bilateral arms in the field of view and breathing/motion. COMPARISON: Same day chest x-ray. FINDINGS: Lungs: 4 mm noncalcified pulmonary nodule right upper lobe anteriorly, axial 11/08. Since the nodule is smooth, no follow up necessary per Fleischner guidelines. Calcified granuloma right upper lobe. Emphysema and moderate scattered chronic interstitial thickening, predominantly lower lobe lungs. No consolidation. Pleural space: No effusion. No pneumothorax, with moderate limited evaluation for minimal disease due to artifact. Pulmonary arteries: No engorgement. Aorta: No aneurysm. Heart: Moderate cardiomegaly. No significant pericardial effusion. Bones/joints: LEFT 4th rib fracture mildly displaced. Nondisplaced left 3rd rib fracture. No other acute fracture. Soft tissues: Unremarkable. Lymph nodes: No enlarged lymph nodes. IMPRESSION: 1. No pneumothorax or acute intrathoracic abnormality. 2. LEFT 3rd and 4th rib fractures. 3. Emphysema and chronic interstitial lung disease. 4. 4 mm right upper lobe pulmonary nodule, no further workup needed. 5. Moderate motion/artifact limits evaluation. Electronically signed by: Cyndi Banda M.D. 12/25/24 21:02 PM Code Status & VTE Plan VTE Prophylaxis Plan VTE Prophylaxis will be ordered: Yes
[2024-12-26] MEDS ORDERED: POLYETHYLENE (MIRALAX) 17 GM PACK PO PRN (02:11)
[2024-12-26] MEDS ORDERED: NITROGLYCERIN SL 0.4 MG/TAB TAB SL PRN (02:11)
[2024-12-26] MEDS ORDERED: LORazepam 1 MG TAB PO PRN (02:11)
[2024-12-26] MEDS: THIAMINE HCL 100 MG in SYRINGE 9 ML IV STA (02:33)
[2024-12-26] MEDS: FOLIC ACID 1 MG in SYRINGE 9.8 ML IV STA (02:33)
[2024-12-26] MEDS: SODIUM CHLORIDE 0.9% 1,000 ML IV SCH (02:39)
[2024-12-26] MEDS ORDERED: ALBUTEROL HFA 8 GM INHALER INH PRN (02:39)
[2024-12-26] MEDS: cefTRIAXone SODIUM 2,000 MG/50 ML BAG IV SCH (03:28)
[2024-12-26 07:34] LABS: Hematocrit (blood only) 28.1 % (42.0-52.0); Hemoglobin 9.4 g/dl (14.0-18.0); Immature Granulocytes # (auto) 0.06 K/uL (0.01-0.20); Immature Granulocytes % (auto) 0.6 %; Mean Corpuscular Hemoglobin 33.6 pg (25.0-34.0); Mean Corpuscular Volume 100.4 fL (80.0-100.0); Platelet Count 239 K/uL (130-400); RDW Standard Deviation 49.3 fL (36.4-46.3); Red Blood Count 2.80 M/uL (4.70-6.10); White Blood Count 9.96 K/ul (4.8-10.8)
[2024-12-26 07:52] LABS: Anion Gap 10.0 (3-11); Blood Urea Nitrogen 30.0 mg/dl (6-23); Calcium 8.9 mg/dl (8.6-10.3); Carbon Dioxide 19.0 mmol/L (21-32); Chloride 103.0 mmol/L (98-107); Creatinine Clr Calc Pharmacy 47.4 ml/min; Glucose 108.0 mg/dl (70-99(Fasting)); Iron 25.0 mcg/dl (35-175); Potassium 3.9 mmol/L (3.5-5.1); Sodium 132.0 mmol/L (136-145); Total Iron Binding Cap Calc 323.0 mcg/dl (250-450); Transferrin 231.0 mg/dl (200-360); Transferrin (FE) Percent Satur 8.0 % (20-50)
[2024-12-26] MEDS: SERTRALINE HCL 100 MG TABLET PO SCH (08:07)
[2024-12-26] MEDS: ASCORBIC ACID 500 MG TAB PO SCH (08:08)
[2024-12-26] MEDS: CHOLECALCIFEROL 25 MCG (1000 UNITS) TAB PO SCH (08:11)
[2024-12-26] MEDS: CARBIDOPA/LEVODOPA 50/200MG EXT REL TAB PO SCH (08:11)
[2024-12-26] MEDS: FLUTICASONE FUROATE 100MCG 14 PUFFS/INHALER INH SCH (08:12)
[2024-12-26] MEDS: UMECLIDINIUM/VILANTEROL 62.5/25MCG 7 PUFFS/INHALER INH SCH (08:12)
[2024-12-26] MEDS: FOLIC ACID 1 MG in SYRINGE 9.8 ML IV SCH (08:16)
[2024-12-26] MEDS: THIAMINE HCL 100 MG in SYRINGE 9 ML IV SCH (08:17)
[2024-12-26 08:19] LABS: Folate (Folic Acid),Ser orPlas > 22.30 ng/ml (>5.38); Vitamin B12 321 pg/ml (180-914)
[2024-12-26] MEDS ORDERED: APIXABAN 2.5 MG TAB PO SCH (09:00)
[2024-12-26] MEDS ORDERED: NON-FORMULARY MEDICATION (Glucosamine-Chondroitin 250-200 mg Tablet) PO SCH (09:00)
[2024-12-26 09:30] LABS: Magnesium 1.9 mg/dl (1.7-2.4)
--- NOTE | 2024-12-26 10:12 | Urology Consultation ---
<Statement entered by Thiago Ocampo MD - 12/26/24 13:26> Chart reviewed Patient assessed plan reviewed and agree as written. Date of Consultation December 26, 2024 Assessment & Plan (1) Bladder mass: Ct scan reviewed, shows some nodularity anteriorly within the bladder, inferior right renal cyst. UA negative for blood. No urinary complaints at this time. Former smoker Reviewed with Dr. Ocampo. Recommend outpatient cystoscopy for further evaluation of his bladder. Follow up will be arranged with our office. Urology will sign off. History of Present Illness Attending Physician: Reno Lentz MD History of Present Illness 84 year old patient admitted yesterday for frequent falls and confusion, urology consulted for bladder findings on ct scan. He has difficulty hearing, his daughter is with him today. Denies abdominal/bladder pain. Denies gross hematuria. His daughter thinks he might of had some microscopic hematuria in the past. Some difficulty urinating yesterday, but seems improved. Otherwise, no urinary complaints. Remote history of smoking, quit approx 30 years ago. Allergies Allergy/AdvReac Type Severity Reaction Status Date / Time No Known Allergies Allergy Verified 12/26/24 02:14 Home Medications Medication Instructions Recorded Confirmed Type albuterol sulfate 90 mcg/actuation 2 inh inhalation Q4H PRN Shortness 12/25/24 12/25/24 History breath activated powder inhaler Of Breath Or Wheezing apixaban 5 mg tablet (Eliquis) 5 mg PO BID 12/25/24 12/25/24 History ascorbic acid (vitamin C) 250 mg 250 mg PO DAILY 12/25/24 12/25/24 History tablet carbidopa ER 50 mg-levodopa 200 mg 1 tab PO BID 12/25/24 12/25/24 History tablet,extended release carvedilol 3.125 mg tablet 3.125 mg PO BID 12/25/24 12/25/24 History cholecalciferol (vitamin D3) 50 50 mcg PO DAILY 12/25/24 12/25/24 History mcg (2,000 unit) tablet digoxin 125 mcg (0.125 mg) tablet 125 mcg PO HS 12/25/24 12/25/24 History fluticasone fur. 100 mcg-umeclid 1 inh inhalation DAILY 12/25/24 12/25/24 History 62.5 mcg-vilant 25 mcg inhalat.powder (Trelegy Ellipta) furosemide 40 mg tablet 40 mg PO DAILY 12/25/24 12/25/24 History glucosamine-chondroitin 250 mg-200 1 tab PO DAILY 12/25/24 12/25/24 History mg tablet lisinopril 2.5 mg tablet 2.5 mg PO DAILY 12/25/24 12/25/24 History multivitamin 1 tab PO DAILY 12/25/24 12/25/24 History niacin 1,000 mg tablet,extended 1,000 mg PO HS 12/25/24 12/25/24 History release 24 hr nitroglycerin 0.4 mg sublingual 0.4 mg sublingual UD 12/25/24 12/25/24 History tablet pantoprazole 40 mg tablet,delayed 40 mg PO DAILY 12/25/24 12/25/24 History release potassium chloride 10 mEq 10 meq PO DAILY 12/25/24 12/25/24 History tablet,extended release sertraline 100 mg tablet 100 mg PO DAILY 12/25/24 12/25/24 History simvastatin 40 mg tablet 40 mg PO HS 12/25/24 12/25/24 History Patient History Medical History CAD (coronary artery disease) HLD (hyperlipidemia) Heart attack Parkinson disease Pneumothorax Atrial fibrillation Social History Smoking Status: Former smoker Tobacco Type: Cigarettes Hx Alcohol Use: Yes Alcohol type: beer and hard liquor Hx Substance Use: No Preferred Language: Cameroonian 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 Current Living Situation: Alone Feels Safe at Home: Yes Safety Concerns: Feels Safe At This Time Assistive Devices: Glasses, Hearing Aid - Bilateral, Walker and Wheelchair Physical Exam Constitutional: no acute distress Respiratory: normal respiratory effort Gastrointestinal (Abdomen): Percussion/Palpation: abdomen soft; abdomen nontender Results & Data Vital Signs (Past 12 Hours) Vital Signs Temp Pulse Pulse Pulse Resp BP BP 12/26/24 08:08 36.6 C 65 18 119/58 L 12/26/24 04:00 36.9 C 74 18 12/26/24 02:15 12/26/24 02:15 36.6 C 67 16 126/57 L 12/26/24 01:10 36.6 C 68 21 133/55 L 12/26/24 01:00 68 19 12/26/24 00:00 72 20 12/25/24 23:00 74 21 12/25/24 22:15 74 24 12/25/24 22:00 109/55 L 12/25/24 22:00 109/55 L 12/25/24 22:00 109/55 L 12/25/24 22:00 109/55 L 12/25/24 22:00 109/55 L 12/25/24 22:00 65 22 BP Pulse Ox O2 Del Method 12/26/24 08:08 95 Room Air 12/26/24 04:00 120/71 96 Room Air 12/26/24 02:15 Room Air 12/26/24 02:15 94 Room Air 12/26/24 01:10 96 Room Air 12/26/24 01:00 133/55 L 96 Room Air 12/26/24 00:00 95/75 L 95 Room Air 12/25/24 23:00 111/59 L 94 Room Air 12/25/24 22:15 95 12/25/24 22:00 12/25/24 22:00 12/25/24 22:00 12/25/24 22:00 12/25/24 22:00 12/25/24 22:00 96 PG Care Time/CCT Total # of Minutes Spent Total Time Spent with Patient: Total time spent is greater than 50% in coordination of care (as documented) at patient's floor/unit and/or counseling patient: Coding Level of Care Code 36799 IN/OBS CONSULT LVL 3,45M Diagnoses Bladder mass N32.89
--- NOTE | 2024-12-26 10:40 | Consultation ---
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 Pt with good femoral and palpable distal pulses. No indications for vascular surgical intervention at this time. Pt and daughter aware. Please call if needed. History of Present Illness Reason for Consultation: aortic disease Attending Physician: Reno Lentz MD History of Present Illness 84 yo m with hx of a fib, cad, parkinsons dx, COPD, HTN, ETOH use, seen in consultation today for distal aortic chronic dissection/plaque noted on CT scan. Pt was admitted after a fall at home and some confusion. States his BLE felt weak and numb and he fell. This has happened about 6 times over the past month. Lives alone, his daughter is nearby to take care of him when needed. Pt denies MELGOZA, fever, chest pain, palpitations, abd pain, N/V, rest pain, claudication, other complaints. CT abd/pelvis notes a distal aortic focal outpouching/dissection, which appears chronic and well calcified. Allergies Allergy/AdvReac Type Severity Reaction Status Date / Time No Known Allergies Allergy Verified 12/26/24 02:14 Home Medications Medication Instructions Recorded Confirmed Type albuterol sulfate 90 mcg/actuation 2 inh inhalation Q4H PRN Shortness 12/25/24 12/25/24 History breath activated powder inhaler Of Breath Or Wheezing apixaban 5 mg tablet (Eliquis) 5 mg PO BID 12/25/24 12/25/24 History ascorbic acid (vitamin C) 250 mg 250 mg PO DAILY 12/25/24 12/25/24 History tablet carbidopa ER 50 mg-levodopa 200 mg 1 tab PO BID 12/25/24 12/25/24 History tablet,extended release carvedilol 3.125 mg tablet 3.125 mg PO BID 12/25/24 12/25/24 History cholecalciferol (vitamin D3) 50 50 mcg PO DAILY 12/25/24 12/25/24 History mcg (2,000 unit) tablet digoxin 125 mcg (0.125 mg) tablet 125 mcg PO HS 12/25/24 12/25/24 History fluticasone fur. 100 mcg-umeclid 1 inh inhalation DAILY 12/25/24 12/25/24 History 62.5 mcg-vilant 25 mcg inhalat.powder (Trelegy Ellipta) furosemide 40 mg tablet 40 mg PO DAILY 12/25/24 12/25/24 History glucosamine-chondroitin 250 mg-200 1 tab PO DAILY 12/25/24 12/25/24 History mg tablet lisinopril 2.5 mg tablet 2.5 mg PO DAILY 12/25/24 12/25/24 History multivitamin 1 tab PO DAILY 12/25/24 12/25/24 History niacin 1,000 mg tablet,extended 1,000 mg PO HS 12/25/24 12/25/24 History release 24 hr nitroglycerin 0.4 mg sublingual 0.4 mg sublingual UD 12/25/24 12/25/24 History tablet pantoprazole 40 mg tablet,delayed 40 mg PO DAILY 12/25/24 12/25/24 History release potassium chloride 10 mEq 10 meq PO DAILY 12/25/24 12/25/24 History tablet,extended release sertraline 100 mg tablet 100 mg PO DAILY 12/25/24 12/25/24 History simvastatin 40 mg tablet 40 mg PO HS 12/25/24 12/25/24 History Patient History Medical History CAD (coronary artery disease) HLD (hyperlipidemia) Heart attack Parkinson disease Pneumothorax Atrial fibrillation Social History Smoking Status: Former smoker Tobacco Type: Cigarettes Hx Alcohol Use: Yes Alcohol type: beer and hard liquor Hx Substance Use: No Preferred Language: Armenian 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 Current Living Situation: Alone Feels Safe at Home: Yes Safety Concerns: Feels Safe At This Time Assistive Devices: Glasses, Hearing Aid - Bilateral, Walker and Wheelchair Review of Systems Review of Systems: All systems reviewed & are unremarkable except as noted in HPI & below Physical Exam Constitutional: WD/WN, vitals as above cooperative and comfortable; not in distress ENMT: Ears: + hearing impairment Neck: trachea midline Respiratory: normal respiratory effort, lungs clear to auscultation Auscultation: + diminished lung sounds Cardiovascular: Rate/Rhythm: + irregularly irregular Vessels: femoral pulses present, posterior tibial pulses present, dorsalis pedis pulses present and radial pulses present; + abnormal peripheral pulses Extremities: normal capillary refill and + edema (mild BLE) Gastrointestinal (Abdomen): Inspection/Auscultation: abdomen normal to inspection and normal bowel sounds Percussion/Palpation: abdomen soft; abdomen nontender Musculoskeletal: no cyanosis or clubbing, extremities motor strength 5/5 Skin: no rashes, warm and dry Neurologic: moves all extremities and awake; no focal motor deficits and not confused Results & Data Vital Signs (Past 12 Hours) Vital Signs Temp Pulse Pulse Pulse Resp BP BP 12/26/24 08:08 36.6 C 65 18 119/58 L 12/26/24 04:00 36.9 C 74 18 12/26/24 02:15 12/26/24 02:15 36.6 C 67 16 126/57 L 12/26/24 01:10 36.6 C 68 21 133/55 L 12/26/24 01:00 68 19 12/26/24 00:00 72 20 12/25/24 23:00 74 21 BP Pulse Ox O2 Del Method 12/26/24 08:08 95 Room Air 12/26/24 04:00 120/71 96 Room Air 12/26/24 02:15 Room Air 12/26/24 02:15 94 Room Air 12/26/24 01:10 96 Room Air 12/26/24 01:00 133/55 L 96 Room Air 12/26/24 00:00 95/75 L 95 Room Air 12/25/24 23:00 111/59 L 94 Room Air
--- NOTE | 2024-12-26 10:52 | XCELERA ---
[id number]
[2024-12-26] MEDS: MULTIVITAMIN TAB PO SCH (11:19)
--- NOTE | 2024-12-26 12:38 | Neurology Consultation ---
Date of Consultation December 26, 2024 Assessment & Plan (1) Frequent falls: -- Check Vits B1, B12, D3 and supplement if necessary -- Continue Sinemet at current dose for now -- We spent time talking about safety measures for patient had home including an alert system to notify family and using a rollator walker -- PT/OT -- Outpatient PT if necessary -- Outpatient Neuro Referral Plan 84 yo man w/ h/o CAD status post stents, A-fib, questionable Parkinson disease, hypertension, COPD, questionable CHF, GERD, hyperlipidemia, depression who lives alone and ambulates with rollator walker was brought in by daughter because of frequent falls and confusion. After speaking to family and brief observation of patient PD seems a likely factor in falls but patient will need full neurologic evaluation to qualify. His falls likely are contributed to by neuropathy. Telehealth Consultation Telehealth Information Telehealth Information: I performed this visit using a real-time telehealth connection between my location and the patients originating location ([facility]). After connecting through interactive tele-video, patient was identified by name and date of and/or wristband check.Patient (or authorized healthcare territory sales representative) was informed that this was a telemedicine visit and it was being conducted confidentially over secure lines. My office door was closed and no one else was present in the room with me.Patient (or authorized healthcare territory sales representative) provided consent to proceed with the visit, expressed an understanding of privacy and security of the telemedicine visit, and gave permission to have a hospital territory sales representative in the room in order to assist with the visit and to conduct portions of the visit, as needed. I informed the patient (or authorized healthcare territory sales representative) that I reviewed their record and presented the opportunity for them to ask any questions regarding the visit today. The patient agreed to participate. History of Present Illness Reason for Consultation: Frequent falls Requesting Physician: Dr. Lentz Attending Physician: Reno Lentz MD History of Present Illness Per Admitting H&P: "84-year-old male with past medical history significant for CAD status post stents, A-fib, questionable Parkinson disease, hypertension, COPD, questionable CHF, GERD, hyperlipidemia, depression who lives alone and ambulates with rollator walker was brought in by daughter because of frequent falls and confusion. Daughter states last 1 month he fell 6 times. Yesterday after falling down he seemed somewhat confused and was taken to [facility]. After coming back home patient was hallucinating per daughter. He was seeing things in the house. Daughter was concerned something else was going on or possible infection and she brought him to the hospital today. As per daughter patient has no dementia. Patient is eating okay but daughter thinks he might be having some trouble swallowing. No recent fevers. No cough. Patient complain of some chest pain in his ribs area. No shortness of breath. No abdominal pain. Normal bowel and bladder movements. No runny nose or sore throat. Patient seems comfortable. Hemodynamics are okay. As per daughter patient currently drinking 1 beer daily and also 1 cup of whiskey daily. Daughter does not think that he will go through withdrawal. Patient PCP is Kael Wharton." Speaking to family at bedside pt has a neuropathy that has been getting worse over the last while to the point that his feet will get caught up on objects and he will fall. This culminated in pt having a fall earlier in November that led to him being found down after not being able to get up for ten hours. She states that he also has hallucinations - more of a sensation of internal thrumming. He states he feels it currently. States that he was started on sinemet about a year ago and not sure that there has any change, he has a tremor and this was started moreso for that. Allergies Allergy/AdvReac Type Severity Reaction Status Date / Time No Known Allergies Allergy Verified 12/26/24 02:14 Home Medications Medication Instructions Recorded Confirmed Type albuterol sulfate 90 mcg/actuation 2 inh inhalation Q4H PRN Shortness 12/25/24 12/25/24 History breath activated powder inhaler Of Breath Or Wheezing apixaban 5 mg tablet (Eliquis) 5 mg PO BID 12/25/24 12/25/24 History ascorbic acid (vitamin C) 250 mg 250 mg PO DAILY 12/25/24 12/25/24 History tablet carbidopa ER 50 mg-levodopa 200 mg 1 tab PO BID 12/25/24 12/25/24 History tablet,extended release carvedilol 3.125 mg tablet 3.125 mg PO BID 12/25/24 12/25/24 History cholecalciferol (vitamin D3) 50 50 mcg PO DAILY 12/25/24 12/25/24 History mcg (2,000 unit) tablet digoxin 125 mcg (0.125 mg) tablet 125 mcg PO HS 12/25/24 12/25/24 History fluticasone fur. 100 mcg-umeclid 1 inh inhalation DAILY 12/25/24 12/25/24 History 62.5 mcg-vilant 25 mcg inhalat.powder (Trelegy Ellipta) furosemide 40 mg tablet 40 mg PO DAILY 12/25/24 12/25/24 History glucosamine-chondroitin 250 mg-200 1 tab PO DAILY 12/25/24 12/25/24 History mg tablet lisinopril 2.5 mg tablet 2.5 mg PO DAILY 12/25/24 12/25/24 History multivitamin 1 tab PO DAILY 12/25/24 12/25/24 History niacin 1,000 mg tablet,extended 1,000 mg PO HS 12/25/24 12/25/24 History release 24 hr nitroglycerin 0.4 mg sublingual 0.4 mg sublingual UD 12/25/24 12/25/24 History tablet pantoprazole 40 mg tablet,delayed 40 mg PO DAILY 12/25/24 12/25/24 History release potassium chloride 10 mEq 10 meq PO DAILY 12/25/24 12/25/24 History tablet,extended release sertraline 100 mg tablet 100 mg PO DAILY 12/25/24 12/25/24 History simvastatin 40 mg tablet 40 mg PO HS 12/25/24 12/25/24 History Patient History Medical History CAD (coronary artery disease) HLD (hyperlipidemia) Heart attack Parkinson disease Pneumothorax Atrial fibrillation Social History Smoking Status: Former smoker Tobacco Type: Cigarettes Hx Alcohol Use: Yes Alcohol type: beer and hard liquor Hx Substance Use: No Preferred Language: Palauan Communication Ability: Impaired 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 Conversant. A&O to person and place. Results & Data Vital Signs (Past 12 Hours) Vital Signs Temp Pulse Pulse Pulse Resp BP BP 12/26/24 11:21 36.4 C L 62 18 114/62 12/26/24 08:08 36.6 C 65 18 119/58 L 12/26/24 04:00 36.9 C 74 18 12/26/24 02:15 12/26/24 02:15 36.6 C 67 16 126/57 L 12/26/24 01:10 36.6 C 68 21 133/55 L 12/26/24 01:00 68 19 BP Pulse Ox O2 Del Method 12/26/24 11:21 93 Room Air 12/26/24 08:08 95 Room Air 12/26/24 04:00 120/71 96 Room Air 12/26/24 02:15 Room Air 12/26/24 02:15 94 Room Air 12/26/24 01:10 96 Room Air 12/26/24 01:00 133/55 L 96 Room Air Laboratory Results Per chart review Diagnostic Findings CT Head: unremarkable
--- NOTE | 2024-12-26 12:41 | Electrocardiogram Report ---
Test Reason : Blood Pressure : */* mmHG Vent. Rate : 57 BPM Atrial Rate : * BPM P-R Int : * ms QRS Dur : 90 ms QT Int : 502 ms P-R-T Axes : * -20 -35 degrees QTcB Int : 488 ms Atrial fibrillation with slow ventricular response Minimal voltage criteria for LVH, may be normal variant Septal infarct , age undetermined Inferior infarct , age undetermined Abnormal ECG No previous ECGs available Confirmed by David Bravo ([id number]) on 12/26/2024 12:40:35 PM Referred By: REFERRED SELF Confirmed By: David Bravo
--- NOTE | 2024-12-26 12:46 | Electrocardiogram Report ---
Test Reason : Blood Pressure : */* mmHG Vent. Rate : 77 BPM Atrial Rate : * BPM P-R Int : * ms QRS Dur : 82 ms QT Int : 494 ms P-R-T Axes : * -16 128 degrees QTcB Int : 559 ms Atrial fibrillation Septal infarct (cited on or before 25-Dec-2024) Inferior infarct (cited on or before 25-Dec-2024) Prolonged QT Abnormal ECG When compared with ECG of 25-Dec-2024 19:49, (unconfirmed) Serial changes of Septal infarct Present Confirmed by David Bravo ([id number]) on 12/26/2024 12:46:00 PM Referred By: REFERRED SELF Confirmed By: David Bravo
--- NOTE | 2024-12-26 13:30 | Hospitalist Progress Note ---
Date of Service December 26, 2024 Assessment & Plan (1) Frequent falls: Plan: 84-year-old male with past medical history significant for CAD status post stents, A-fib, questionable Parkinson disease, hypertension, COPD, questionable CHF, GERD, hyperlipidemia, depression who lives alone and ambulates with rollator walker was brought in by daughter because of frequent falls and confusion. Daughter states last 1 month he fell 6 times. Yesterday after falling down he seemed somewhat confused and was taken to [facility]. After coming back home patient was hallucinating per daughter. He was seeing things in the house. Daughter was concerned something else was going on or possible infection and she brought him to the hospital today. As per daughter patient has no dementia. Patient is eating okay but daughter thinks he might be having some trouble swallowing. No recent fevers. No cough. Patient complain of some chest pain in his ribs area. No shortness of breath. No abdominal pain. Normal bowel and bladder movements. No runny nose or sore throat. Patient seems comfortable. Hemodynamics are okay. As per daughter patient currently drinking 1 beer daily and also 1 cup of whiskey daily. Daughter does not think that he will go through withdrawal. Patient PCP is Kael Wharton. 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 Pelvic x-ray no fractures CT head nonspecific ventriculomegaly query communicating hydrocephalus versus atrophy Cervical spine CT no acute fractures Clinically much better and denies any hallucinations and does not have any delirium Appreciate neurology neurology input and recommendationWill continue current dose of antiparkinsonian medication and get vitamin levels checked Appreciate urology input and recommendation for outpatient cystoscopy for possible bladder relations Appreciate vascular surgery input and recommendation for atherosclerotic aortic disease Discussed detail with the daughter Will get PT and OT evaluation and will need placement Leukocytosis UA okay CT chest no obvious pneumonia Will follow blood cultures Empiric Rocephin for now Anemia Hemoglobin 11.8 Do not have baseline labs Will check iron studies, vitamin B12 and folate levels stool for hemeoccult-pending Hemoglobin dropped to 9.4 from 11.8 without any evidence of bleeding Iron level has been low at 25 with saturation low at 8Will give intravenous and oral iron KHUSHBOO versus CKD Creatinine 1.9 Do not know baseline labs Holding Lasix and potassium supplement and also holding lisinopril Getting gentle fluids for 1 L Creatinine has been normalized Alcoholism As per daughter patient drinks 1 beer daily and also 1 cup of whiskey daily Daughter does not think that he will go through withdrawal Will place on low risk alcohol protocol with as needed Ativan and monitor Will give him thiamine and folic acid Hyponatremia Sodium 130 Getting gentle fluids Will follow repeat labs-sodium is 132 History of CAD status post stents On Coreg, Eliquis and statin History of A-fib On Coreg, digoxin and Eliquis Hypertension On Coreg Holding Lasix and lisinopril Will monitor Hyperlipidemia Statin Depression On Zoloft History of COPD Continue home inhalers Questionable Parkinson's Daughter does not think that he has Parkinson's Carbidopa and levodopa was prescribed for his tremors for possible Parkinson's per daughter Will continue current dose of carbidopa levodopa and have an outpatient neurology appointment on discharge. Dysphagia? per daughter possible difficulty swallowing will consult speech Possible CHF Patient is on Lasix which is held for now Monitor for volume overload Will follow echoLV is normal in size with mild concentric LVH basal septum is thickened and angulated consistent with sigmoid septum, EF 65 to 70%, LA severely dilated, right atrium is severely dilated, there is mild to moderate mitral regurgitation, there is moderate tricuspid regurgitation, right ventricular systolic pressure elevated to 30 to 40 mmHg No change of current medications DVT prophylaxis On Eliquis Disposition Med/telemetry CODE STATUS okay for CPR but no life support as per my discussion with the daughter Discussed in detail with the daughter Admission and Anticipated Discharge Date Admission Date: December 25, 2024 Subjective 12/26/2024 The patient was seen and examined in medical telemetry unit in presence of the daughter He has been feeling much better and does not have any more hallucination of auditory or visual Does not seems to be in any confusion and feeling better since admission Came in with frequent falls and will need PT OT evaluation Review of Systems Review of Systems: All systems reviewed and are unremarkable except as noted below Physical Exam Physical Exam: Lying in bed without any acute distress Constitutional: well developed, well nourished, + ill appearing and average body habitus Eyes: PERRL, conjunctivae normal, anicteric sclerae ENMT: external ear and nose normal, oropharynx normal Neck: trachea midline, no thyromegaly Respiratory: + respiratory distress Cardiovascular: Rate/Rhythm: regular rate and regular rhythm; not tachycardic Heart Sounds: normal S1, normal S2 and + murmur Extremities: no edema Gastrointestinal (Abdomen): Inspection/Auscultation: normal bowel sounds; abdomen not distended Percussion/Palpation: abdomen soft; abdomen nontender Musculoskeletal: No acute arthritis involving any of the joint Neurologic: Alert, awake and oriented x 3. Generally weak but no focal neurodeficit. Does not have any hallucinations Lymphatic: no cervical or axillary lymphadenopathy Results & Data Results & Data Vital Signs (Past 12 Hours) Vital Signs Temp Pulse Pulse Resp BP BP Pulse Ox 12/26/24 11:21 36.4 C L 62 18 114/62 93 12/26/24 08:08 36.6 C 65 18 119/58 L 95 12/26/24 04:00 36.9 C 74 18 120/71 96 12/26/24 02:15 12/26/24 02:15 36.6 C 67 16 126/57 L 94 O2 Del Method 12/26/24 11:21 Room Air 12/26/24 08:08 Room Air 12/26/24 04:00 Room Air 12/26/24 02:15 Room Air 12/26/24 02:15 Room Air Laboratory Results Short CBC 12/25/24 12/26/24 Range/Units 19:47 07:20 WBC 16.87 H 9.96 (4.8-10.8) K/ul Hgb 11.8 L 9.4 L (14.0-18.0) g/dl Hct 34.7 L 28.1 L (42.0-52.0) % Plt Count 301 239 (130-400) K/uL BMP 12/25/24 12/26/24 19:47 07:20 Sodium 130 L 132 L Potassium 4.5 3.9 Chloride 97 L 103 Carbon Dioxide 23 19 L BUN 40 H 30 H Creatinine 1.90 H 1.17 D Glucose 135 H 108 H Calcium 9.9 8.9 Cardiac Enzymes 12/25/24 Range/Units 19:47 Total Creatine Kinase 52 (30-223) U/L Liver Function 12/25/24 Range/Units 19:47 Total Bilirubin 1.0 (0.2-1.0) mg/dl AST 20 (13-39) U/L ALT < 3 L (7-52) U/L Alkaline Phosphatase 83 (34-104) U/L Albumin 3.6 (3.4-5.0) gm/dl Urine 12/25/24 Range/Units Unknown Urine Color Dark Yellow Urine Appearance Clear (Clear) Urine pH 5.0 (4.5-7.5) Ur Specific [place] 1.020 (1.000-1.030) Urine Protein Negative (Negative) Urine Glucose (UA) Negative (Negative) 2 2 Medications Administered Short CBC 12/25/24 12/26/24 Range/Units 19:47 07:20 WBC 16.87 H 9.96 (4.8-10.8) K/ul Hgb 11.8 L 9.4 L (14.0-18.0) g/dl Hct 34.7 L 28.1 L (42.0-52.0) % Plt Count 301 239 (130-400) K/uL BMP 12/25/24 12/26/24 19:47 07:20 Sodium 130 L 132 L Potassium 4.5 3.9 Chloride 97 L 103 Carbon Dioxide 23 19 L BUN 40 H 30 H Creatinine 1.90 H 1.17 D Glucose 135 H 108 H Calcium 9.9 8.9 Cardiac Enzymes 12/25/24 Range/Units 19:47 Total Creatine Kinase 52 (30-223) U/L Liver Function 12/25/24 Range/Units 19:47 Total Bilirubin 1.0 (0.2-1.0) mg/dl AST 20 (13-39) U/L ALT < 3 L (7-52) U/L Alkaline Phosphatase 83 (34-104) U/L Albumin 3.6 (3.4-5.0) gm/dl Urine 12/25/24 Range/Units Unknown Urine Color Dark Yellow Urine Appearance Clear (Clear) Urine pH 5.0 (4.5-7.5) Ur Specific [place] 1.020 (1.000-1.030) Urine Protein Negative (Negative) Urine Glucose (UA) Negative (Negative)
[2024-12-26] MEDS: DIGOXIN 0.125 MG TAB PO SCH (17:23)
[2024-12-26] MEDS: NIACIN EXTENDED REL 500 MG TABCR PO SCH (20:12)
[2024-12-26] MEDS: SIMVASTATIN 40 MG TAB PO SCH (20:13)
[2024-12-26] MEDS: MELATONIN 3 MG TAB PO PRN (21:53)
[2024-12-27 07:28] LABS: Hematocrit (blood only) 30.5 % (42.0-52.0); Hemoglobin 10.2 g/dl (14.0-18.0); Immature Granulocytes # (auto) 0.06 K/uL (0.01-0.20); Immature Granulocytes % (auto) 0.6 %; Mean Corpuscular Hemoglobin 33.9 pg (25.0-34.0); Mean Corpuscular Volume 101.3 fL (80.0-100.0); Platelet Count 283 K/uL (130-400); RDW Standard Deviation 50.2 fL (36.4-46.3); Red Blood Count 3.01 M/uL (4.70-6.10); White Blood Count 9.56 K/ul (4.8-10.8)
[2024-12-27 07:46] LABS: Anion Gap 9.0 (3-11); Blood Urea Nitrogen 19.0 mg/dl (6-23); Calcium 9.3 mg/dl (8.6-10.3); Carbon Dioxide 21.0 mmol/L (21-32); Chloride 104.0 mmol/L (98-107); Creatinine Clr Calc Pharmacy 63.1 ml/min; Glucose 90.0 mg/dl (70-99(Fasting)); Magnesium 2.0 mg/dl (1.7-2.4); Potassium 4.1 mmol/L (3.5-5.1); Sodium 134.0 mmol/L (136-145)
--- NOTE | 2024-12-27 10:20 | Hospitalist Progress Note ---
Date of Service December 27, 2024 Assessment & Plan (1) Frequent falls: Plan: 84-year-old male with past medical history significant for CAD status post stents, A-fib, questionable Parkinson disease, hypertension, COPD, questionable CHF, GERD, hyperlipidemia, depression who lives alone and ambulates with rollator walker was brought in by daughter because of frequent falls and confusion. Daughter states last 1 month he fell 6 times. Yesterday after falling down he seemed somewhat confused and was taken to [facility]. After coming back home patient was hallucinating per daughter. He was seeing things in the house. Daughter was concerned something else was going on or possible infection and she brought him to the hospital today. As per daughter patient has no dementia. Patient is eating okay but daughter thinks he might be having some trouble swallowing. No recent fevers. No cough. Patient complain of some chest pain in his ribs area. No shortness of breath. No abdominal pain. Normal bowel and bladder movements. No runny nose or sore throat. Patient seems comfortable. Hemodynamics are okay. As per daughter patient currently drinking 1 beer daily and also 1 cup of whiskey daily. Daughter does not think that he will go through withdrawal. Patient PCP is Kael Wharton. 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 Pelvic x-ray no fractures CT head nonspecific ventriculomegaly query communicating hydrocephalus versus atrophy Cervical spine CT no acute fractures Clinically much better and denies any hallucinations and does not have any delirium Appreciate neurology neurology input and recommendationWill continue current dose of antiparkinsonian medication and get vitamin levels checked Appreciate urology input and recommendation for outpatient cystoscopy for possible bladder relations Appreciate vascular surgery input and recommendation for atherosclerotic aortic disease Discussed detail with the daughter Will get PT and OT evaluation and will need placement Clinically much better remains pleasantly confused without any other significant symptoms Leukocytosis UA okay CT chest no obvious pneumonia Will follow blood cultures Empiric Rocephin for now Blood cultures have been negative and the urine was will not send for culture due to unremarkable UA Will continue intravenous ceftriaxone for a total of 5 days Anemia Hemoglobin 11.8 Do not have baseline labs Will check iron studies, vitamin B12 and folate levels stool for hemeoccult-pending Hemoglobin dropped to 9.4 from 11.8 without any evidence of bleeding Iron level has been low at 25 with saturation low at 8Will give intravenous and oral iron Patient KHUSHBOO versus CKD Creatinine 1.9 Do not know baseline labs Holding Lasix and potassium supplement and also holding lisinopril Getting gentle fluids for 1 L Creatinine has been normalized Alcoholism As per daughter patient drinks 1 beer daily and also 1 cup of whiskey daily Daughter does not think that he will go through withdrawal Will place on low risk alcohol protocol with as needed Ativan and monitor Will give him thiamine and folic acid Hyponatremia Sodium 130 Getting gentle fluids Will follow repeat labs-sodium is 132 Sodium level is almost normal at 134 Low phosphate and will be replaced History of CAD status post stents On Coreg, Eliquis and statin History of A-fib On Coreg, digoxin and Eliquis Hypertension On Coreg Holding Lasix and lisinopril Will monitor Hyperlipidemia Statin Depression On Zoloft History of COPD Continue home inhalers Questionable Parkinson's Daughter does not think that he has Parkinson's Carbidopa and levodopa was prescribed for his tremors for possible Parkinson's per daughter Will continue current dose of carbidopa levodopa and have an outpatient neurology appointment on discharge. Dysphagia? per daughter possible difficulty swallowing will consult speech Possible CHF Patient is on Lasix which is held for now Monitor for volume overload Will follow echoLV is normal in size with mild concentric LVH basal septum is thickened and angulated consistent with sigmoid septum, EF 65 to 70%, LA s everely dilated, right atrium is severely dilated, there is mild to moderate mitral regurgitation, there is moderate tricuspid regurgitation, right ventricular systolic pressure elevated to 30 to 40 mmHg No change of current medications DVT prophylaxis On Eliquis Disposition Med/telemetry CODE STATUS okay for CPR but no life support as per my discussion with the daughter Discussed in detail with the daughter Admission and Anticipated Discharge Date Admission Date: December 25, 2024 Subjective 12/26/2024 The patient was seen and examined in medical telemetry unit in presence of the daughter He has been feeling much better and does not have any more hallucination of auditory or visual Does not seems to be in any confusion and feeling better since admission Came in with frequent falls and will need PT OT evaluation 12/27/2024 The patient was seen and examined in medical telemetry unit He has been stable but remains pleasantly confused Has had more confusion last night but a little better this morning Denies any significant symptoms Review of Systems Review of Systems: All systems reviewed and are unremarkable except as noted below Physical Exam Physical Exam: Lying in bed without any acute distress Constitutional: well developed, well nourished, + ill appearing and average body habitus Eyes: PERRL, conjunctivae normal, anicteric sclerae ENMT: external ear and nose normal, oropharynx normal Neck: trachea midline, no thyromegaly Respiratory: + respiratory distress Cardiovascular: Rate/Rhythm: regular rate and regular rhythm; not tachycardic Heart Sounds: normal S1, normal S2 and + murmur Extremities: no edema Gastrointestinal (Abdomen): Inspection/Auscultation: normal bowel sounds; abdomen not distended Percussion/Palpation: abdomen soft; abdomen nontender Musculoskeletal: No acute arthritis involving any of the joint Neurologic: normal touch/pain/proprioception, moves all extremities, awake and + confused (Pleasantly confused); no focal motor deficits Lymphatic: no cervical or axillary lymphadenopathy Results & Data Results & Data Vital Signs (Past 12 Hours) Vital Signs Temp Pulse Pulse Resp BP BP Pulse Ox 12/27/24 07:54 62 12/27/24 07:47 36.4 C L 79 16 127/53 L 94 12/27/24 02:27 36.8 C 68 20 123/61 94 12/26/24 22:37 36.6 C 52 L 18 105/59 L 95 O2 Del Method 12/27/24 07:54 12/27/24 07:47 Room Air 12/27/24 02:27 Room Air 12/26/24 22:37 Room Air Laboratory Results Short CBC 12/27/24 Range/Units 06:21 WBC 9.56 (4.8-10.8) K/ul Hgb 10.2 L (14.0-18.0) g/dl Hct 30.5 L (42.0-52.0) % Plt Count 283 (130-400) K/uL BMP 12/27/24 06:21 Sodium 134 L Potassium 4.1 Chloride 104 Carbon Dioxide 21 BUN 19 Creatinine 0.89 Glucose 90 Calcium 9.3 Medications Administered Current Inpatient Medications Acetaminophen (Acetaminophen 325 Mg Tab) 650 mg PO Q4H PRN PRN Reason: Pain or Fever Stop: 01/25/25 02:10 Albuterol (Albuterol Hfa 8 Gm Inhaler) 2 puffs INH Q4H PRN PRN Reason: Shortness Of Breath Or Wheezin Stop: 01/25/25 02:38 Apixaban (Apixaban 2.5 Mg Tab) 2.5 mg PO BID [facility] Stop: 01/25/25 08:59 Ascorbic Acid (Ascorbic Acid 500 Mg Tab) 250 mg PO DAILY [facility] Stop: 01/25/25 08:59 Last Admin: 12/27/24 08:53 Dose: 250 mg Carbidopa/Levodopa (Carbidopa/Levodopa 50/200mg Ext Rel Tab) 1 tab PO BID [facility] Stop: 01/25/25 08:59 Last Admin: 12/27/24 08:55 Dose: 1 tab Carvedilol (Carvedilol 3.125 Mg Tab) 3.125 mg PO BID [facility] Stop: 01/25/25 08:59 Last Admin: 12/27/24 08:55 Dose: 3.125 mg Digoxin (Digoxin 0.125 Mg Tab) 0.125 mg PO DAILY@1600 [facility] Stop: 01/25/25 15:59 Last Admin: 12/26/24 17:23 Dose: 0.125 mg Fluticasone Furoate (Fluticasone Furoate 100mcg 14 Puffs/Inhaler) 1 puffs INH DAILY [facility] Stop: 01/25/25 08:59 Last Admin: 12/27/24 08:52 Dose: 1 puffs Ceftriaxone Sodium (Rocephin) 2,000 mg in 50 mls @ 100 mls/hr IV Q24H [facility] Stop: 12/28/24 02:10 Last Infusion: 12/27/24 04:10 Dose: Infused Thiamine HCl 100 mg/ Syringe 10 mls @ 2 mls/min IV QAM [facility] Stop: 01/25/25 08:59 Last Admin: 12/27/24 08:56 Dose: 2 mls/min Folic Acid 1 mg/ Syringe 10 mls @ 5 mls/min IV QAM [facility] Stop: 01/25/25 08:59 Last Admin: 12/27/24 08:55 Dose: 5 mls/min Lorazepam (Lorazepam 1 Mg Tab) 1 mg PO UD PRN; Protocol PRN Reason: AWSS 6 & Above Stop: 01/25/25 02:10 Melatonin (Melatonin 3 Mg Tab) 3 mg PO HS PRN PRN Reason: Sleep Stop: 01/25/25 21:30 Last Admin: 12/26/24 21:53 Dose: 3 mg Multivitamins (Multivitamin Tab) 1 tab PO DAILY [facility] Stop: 01/25/25 08:59 Last Admin: 12/27/24 08:53 Dose: 1 tab Niacin (Niacin Extended Rel 500 Mg Tabcr) 1,000 mg PO HS [facility] Stop: 01/25/25 20:59 Last Admin: 12/26/24 20:12 Dose: 1,000 mg Nitroglycerin (Nitroglycerin Sl 0.4 Mg/Tab Tab) 0.4 mg SL Q5M PRN PRN Reason: Chest Pain Stop: 01/25/25 02:10 Pantoprazole Sodium (Pantoprazole 40 Mg Tab) 40 mg PO DAILY [facility] Stop: 01/25/25 08:59 Last Admin: 12/27/24 08:54 Dose: 40 mg Polyethylene Glycol (Polyethylene (Miralax) 17 Gm Pack) 17 gm PO DAILY PRN PRN Reason: Constipation Stop: 01/25/25 02:10 Sertraline HCl (Sertraline Hcl 100 Mg Tablet) 100 mg PO DAILY [facility] Stop: 01/25/25 08:59 Last Admin: 12/27/24 08:55 Dose: 100 mg Simvastatin (Simvastatin 40 Mg Tab) 40 mg PO HS [facility] Stop: 01/25/25 20:59 Last Admin: 12/26/24 20:13 Dose: 40 mg Umeclidinium/Vilanterol (Umeclidinium/Vilanterol 62.5/25mcg 7 Puffs/Inhaler) 1 puffs INH QAM [facility] Stop: 01/25/25 08:59 Last Admin: 12/27/24 08:51 Dose: 1 puffs Vitamin D (Cholecalciferol 25 Mcg (1000 Units) Tab) 50 mcg PO DAILY [facility] Stop: 01/25/25 08:59 Last Admin: 12/27/24 08:54 Dose: 50 mcg
[2024-12-27] MEDS ORDERED: SODIUM PHOSPHATE 3 MMOL/1 ML 5 ML VIAL IV ONE (10:21)
[2024-12-27] MEDS: IRON SUCROSE 300 MG in SODIUM CHLORIDE 0.9% 250 ML IV ONE (10:47)
[2024-12-27] MEDS: SODIUM PHOSPHATE 20 MMOL in SODIUM CHLORIDE 0.9% 500 ML IV ONE (13:27)
[2024-12-27] MEDS: ACETAMINOPHEN 325 MG TAB PO PRN (20:20)
--- NOTE | 2024-12-28 11:46 | Hospitalist Progress Note ---
Date of Service December 28, 2024 Assessment & Plan (1) Frequent falls: Plan: 84-year-old male with past medical history significant for CAD status post stents, A-fib, questionable Parkinson disease, hypertension, COPD, questionable CHF, GERD, hyperlipidemia, depression who lives alone and ambulates with rollator walker was brought in by daughter because of frequent falls and confusion. Daughter states last 1 month he fell 6 times. Yesterday after falling down he seemed somewhat confused and was taken to [facility]. After coming back home patient was hallucinating per daughter. He was seeing things in the house. Daughter was concerned something else was going on or possible infection and she brought him to the hospital today. As per daughter patient has no dementia. Patient is eating okay but daughter thinks he might be having some trouble swallowing. No recent fevers. No cough. Patient complain of some chest pain in his ribs area. No shortness of breath. No abdominal pain. Normal bowel and bladder movements. No runny nose or sore throat. Patient seems comfortable. Hemodynamics are okay. As per daughter patient currently drinking 1 beer daily and also 1 cup of whiskey daily. Daughter does not think that he will go through withdrawal. Patient PCP is Kael Wharton. 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 Pelvic x-ray no fractures CT head nonspecific ventriculomegaly query communicating hydrocephalus versus atrophy Cervical spine CT no acute fractures Clinically much better and denies any hallucinations and does not have any delirium Appreciate neurology neurology input and recommendationWill continue current dose of antiparkinsonian medication and get vitamin levels checked Appreciate urology input and recommendation for outpatient cystoscopy for possible bladder relations Appreciate vascular surgery input and recommendation for atherosclerotic aortic disease Discussed detail with the daughter Will get PT and OT evaluation and will need placement Clinically much better remains pleasantly confused without any other significant symptoms Remains medically stable but pleasantly confused Awaiting PT and OT evaluation Leukocytosis UA okay CT chest no obvious pneumonia Will follow blood cultures Empiric Rocephin for now Blood cultures have been negative and the urine was will not send for culture due to unremarkable UA Will continue intravenous ceftriaxone for a total of 5 days Anemia Hemoglobin 11.8 Do not have baseline labs Will check iron studies, vitamin B12 and folate levels stool for hemeoccult-pending Hemoglobin dropped to 9.4 from 11.8 without any evidence of bleeding Iron level has been low at 25 with saturation low at 8Will give intravenous and oral iron Will give another dose of IV iron KHUSHBOO versus CKD Creatinine 1.9 Do not know baseline labs Holding Lasix and potassium supplement and also holding lisinopril Getting gentle fluids for 1 L Creatinine has been normalized - will check PRP tomorrow and electrolytes Alcoholism As per daughter patient drinks 1 beer daily and also 1 cup of whiskey daily Daughter does not think that he will go through withdrawal Will place on low risk alcohol protocol with as needed Ativan and monitor Will give him thiamine and folic acid Hyponatremia Sodium 130 Getting gentle fluids Will follow repeat labs-sodium is 132 Sodium level is almost normal at 134 Low phosphate and will be replaced History of CAD status post stents On Coreg, Eliquis and statin History of A-fib On Coreg, digoxin and Eliquis Hypertension On Coreg Holding Lasix and lisinopril Will monitor Hyperlipidemia Statin Depression On Zoloft History of COPD Continue home inhalers Questionable Parkinson's Daughter does not think that he has Parkinson's Carbidopa and levodopa was prescribed for his tremors for possible Parkinson's per daughter Will continue current dose of carbidopa levodopa and have an outpatient [place] urology appointment on discharge. Dysphagia? per daughter possible difficulty swallowing will consult speech Possible CHF Patient is on Lasix which is held for now Monitor for volume overload Will follow echoLV is normal in size with mild concentric LVH basal septum is thickened and angulated consistent with sigmoid septum, EF 65 to 70%, LA severely dilated, right atrium is severely dilated, there is mild to moderate mitral regurgitation, there is moderate tricuspid regurgitation, right ventricular systolic pressure elevated to 30 to 40 mmHg No change of current medications DVT prophylaxis On Eliquis- Eliquis was on hold and will be continued Disposition Med/telemetry CODE STATUS okay for CPR but no life support as per my discussion with the daughter Discussed in detail with the daughter Admission and Anticipated Discharge Date Admission Date: December 25, 2024 Subjective 12/26/2024 The patient was seen and examined in medical telemetry unit in presence of the daughter He has been feeling much better and does not have any more hallucination of auditory or visual Does not seems to be in any confusion and feeling better since admission Came in with frequent falls and will need PT OT evaluation 12/27/2024 The patient was seen and examined in medical telemetry unit He has been stable but remains pleasantly confused Has had more confusion last night but a little better this morning Denies any significant symptoms 12/28/2024 Patient was seen and examined in medical telemetry unit He remains pleasantly confused but denies any other significant symptoms Has been eating and drinking reasonably Review of Systems Review of Systems: All systems reviewed and are unremarkable except as noted below Physical Exam Physical Exam: Lying in bed without any acute distress Constitutional: well developed, well nourished, + ill appearing and average body habitus Eyes: PERRL, conjunctivae normal, anicteric sclerae ENMT: external ear and nose normal, oropharynx normal Neck: trachea midline, no thyromegaly Respiratory: + respiratory distress Cardiovascular: Rate/Rhythm: regular rate and regular rhythm; not tachycardic Heart Sounds: normal S1, normal S2 and + murmur Extremities: no edema Gastrointestinal (Abdomen): Inspection/Auscultation: normal bowel sounds; abdomen not distended Percussion/Palpation: abdomen soft; abdomen nontender Musculoskeletal: No acute arthritis involving any of the joint Neurologic: normal touch/pain/proprioception, moves all extremities, awake and + confused (Pleasantly confused); no focal motor deficits Lymphatic: no cervical or axillary lymphadenopathy Results & Data Results & Data Vital Signs (Past 12 Hours) Vital Signs Temp Pulse Pulse Resp BP BP Pulse Ox 12/28/24 10:53 36.4 C 70 16 146/66 H 97 12/28/24 07:51 36.7 C 70 16 126/64 94 12/28/24 07:03 65 12/28/24 02:57 36.6 C 66 17 99/61 L 97 O2 Del Method 12/28/24 10:53 Room Air 12/28/24 07:51 Room Air 12/28/24 07:03 12/28/24 02:57 Room Air Medications Administered Current Inpatient Medications Acetaminophen (Acetaminophen 325 Mg Tab) 650 mg PO Q4H PRN PRN Reason: Pain or Fever Stop: 01/25/25 02:10 Last Admin: 12/27/24 20:20 Dose: 650 mg Albuterol (Albuterol Hfa 8 Gm Inhaler) 2 puffs INH Q4H PRN PRN Reason: Shortness Of Breath Or Wheezin Stop: 01/25/25 02:38 Apixaban (Apixaban 2.5 Mg Tab) 2.5 mg PO BID GHISLAINE Stop: 01/25/25 08:59 Ascorbic Acid (Ascorbic Acid 500 Mg Tab) 250 mg PO DAILY GHISLAINE Stop: 01/25/25 08:59 Last Admin: 12/28/24 09:25 Dose: 250 mg Carbidopa/Levodopa (Carbidopa/Levodopa 50/200mg Ext Rel Tab) 1 tab PO BID GHISLAINE Stop: 01/25/25 08:59 Last Admin: 12/28/24 09:25 Dose: 1 tab Carvedilol (Carvedilol 3.125 Mg Tab) 3.125 mg PO BID GHISLAINE Stop: 01/25/25 08:59 Last Admin: 12/28/24 09:25 Dose: 3.125 mg Digoxin (Digoxin 0.125 Mg Tab) 0.125 mg PO DAILY@1600 GHISLAINE Stop: 01/25/25 15:59 Last Admin: 12/27/24 17:04 Dose: Not Given Fluticasone Furoate (Fluticasone Furoate 100mcg 14 Puffs/Inhaler) 1 puffs INH DAILY GHISLAINE Stop: 01/25/25 08:59 Last Admin: 12/28/24 09:26 Dose: 1 puffs Thiamine HCl 100 mg/ Syringe 10 mls @ 2 mls/min IV QAM GHISLAINE Stop: 01/25/25 08:59 Last Admin: 12/28/24 10:46 Dose: 2 mls/min Folic Acid 1 mg/ Syringe 10 mls @ 5 mls/min IV QAM GHISLAINE Stop: 01/25/25 08:59 Last Admin: 12/28/24 10:46 Dose: 5 mls/min Lorazepam (Lorazepam 1 Mg Tab) 1 mg PO UD PRN; Protocol PRN Reason: AWSS 6 & Above Stop: 01/25/25 02:10 Melatonin (Melatonin 3 Mg Tab) 3 mg PO HS PRN PRN Reason: Sleep Stop: 01/25/25 21:30 Last Admin: 12/27/24 20:20 Dose: 3 mg Multivitamins (Multivitamin Tab) 1 tab PO DAILY GHISLAINE Stop: 01/25/25 08:59 Last Admin: 12/28/24 09:25 Dose: 1 tab Niacin (Niacin Extended Rel 500 Mg Tabcr) 1,000 mg PO HS GHISLAINE Stop: 01/25/25 20:59 Last Admin: 12/27/24 20:20 Dose: 1,000 mg Nitroglycerin (Nitroglycerin Sl 0.4 Mg/Tab Tab) 0.4 mg SL Q5M PRN PRN Reason: Chest Pain Stop: 01/25/25 02:10 Pantoprazole Sodium (Pantoprazole 40 Mg Tab) 40 mg PO DAILY GHISLAINE Stop: 01/25/25 08:59 Last Admin: 12/28/24 09:26 Dose: 40 mg Polyethylene Glycol (Polyethylene (Miralax) 17 Gm Pack) 17 gm PO DAILY PRN PRN Reason: Constipation Stop: 01/25/25 02:10 Sertraline HCl (Sertraline Hcl 100 Mg Tablet) 100 mg PO DAILY GHISLAINE Stop: 01/25/25 08:59 Last Admin: 12/28/24 09:27 Dose: 100 mg Simvastatin (Simvastatin 40 Mg Tab) 40 mg PO HS GHISLAINE Stop: 01/25/25 20:59 Last Admin: 12/27/24 20:19 Dose: 40 mg Umeclidinium/Vilanterol (Umeclidinium/Vilanterol 62.5/25mcg 7 Puffs/Inhaler) 1 puffs INH QAM GHISLAINE Stop: 01/25/25 08:59 Last Admin: 12/28/24 09:26 Dose: 1 puffs Vitamin D (Cholecalciferol 25 Mcg (1000 Units) Tab) 50 mcg PO DAILY GHISLAINE Stop: 01/25/25 08:59 Last Admin: 12/28/24 09:24 Dose: 50 mcg
[2024-12-28] MEDS: IRON SUCROSE 300 MG in SODIUM CHLORIDE 0.9% 250 ML IV ONE (13:44)
[2024-12-28] MEDS: APIXABAN 5 MG TABLET PO SCH (20:22)
[2024-12-29] MEDS ORDERED: INFLUENZA VACC TS2025-26(65y+)/PF (IIV3) 0.5mL Syr IM ONE (07:30)
[2024-12-29 08:04] LABS: Hematocrit (blood only) 30.4 % (42.0-52.0); Hemoglobin 10.2 g/dl (14.0-18.0); Immature Granulocytes # (auto) 0.06 K/uL (0.01-0.20); Immature Granulocytes % (auto) 0.8 %; Mean Corpuscular Hemoglobin 34.5 pg (25.0-34.0); Mean Corpuscular Volume 102.7 fL (80.0-100.0); Platelet Count 267 K/uL (130-400); RDW Standard Deviation 52.5 fL (36.4-46.3); Red Blood Count 2.96 M/uL (4.70-6.10); White Blood Count 7.68 K/ul (4.8-10.8)
[2024-12-29 08:31] LABS: Anion Gap 8.0 (3-11); Blood Urea Nitrogen 8.0 mg/dl (6-23); Calcium 9.2 mg/dl (8.6-10.3); Carbon Dioxide 22.0 mmol/L (21-32); Chloride 107.0 mmol/L (98-107); Creatinine Clr Calc Pharmacy 99.3 ml/min; Glucose 85.0 mg/dl (70-99(Fasting)); Magnesium 1.8 mg/dl (1.7-2.4); Potassium 3.9 mmol/L (3.5-5.1); Sodium 137.0 mmol/L (136-145)
--- NOTE | 2024-12-29 12:36 | Hospitalist Progress Note ---
Date of Service December 29, 2024 Assessment & Plan (1) Frequent falls: Plan: 84-year-old male with past medical history significant for CAD status post stents, A-fib, questionable Parkinson disease, hypertension, COPD, questionable CHF, GERD, hyperlipidemia, depression who lives alone and ambulates with rollator walker was brought in by daughter because of frequent falls and confusion. Daughter states last 1 month he fell 6 times. Yesterday after falling down he seemed somewhat confused and was taken to [facility]. After coming back home patient was hallucinating per daughter. He was seeing things in the house. Daughter was concerned something else was going on or possible infection and she brought him to the hospital today. As per daughter patient has no dementia. Patient is eating okay but daughter thinks he might be having some trouble swallowing. No recent fevers. No cough. Patient complain of some chest pain in his ribs area. No shortness of breath. No abdominal pain. Normal bowel and bladder movements. No runny nose or sore throat. Patient seems comfortable. Hemodynamics are okay. As per daughter patient currently drinking 1 beer daily and also 1 cup of whiskey daily. Daughter does not think that he will go through withdrawal. Patient PCP is Kael Wharton. 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 Pelvic x-ray no fractures CT head nonspecific ventriculomegaly query communicating hydrocephalus versus atrophy Cervical spine CT no acute fractures Clinically much better and denies any hallucinations and does not have any delirium Appreciate neurology neurology input and recommendationWill continue current dose of antiparkinsonian medication and get vitamin levels checked Appreciate urology input and recommendation for outpatient cystoscopy for possible bladder relations Appreciate vascular surgery input and recommendation for atherosclerotic aortic disease Discussed detail with the daughter Will get PT and OT evaluation and will need placement Clinically much better remains pleasantly confused without any other significant symptoms Remains medically stable but pleasantly confused Has had PT and recommended home Daughter wants him to go to rehab for 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-term manager internal is working on that Leukocytosis UA okay CT chest no obvious pneumonia Will follow blood cultures Empiric Rocephin for now Blood cultures have been negative and the urine was will not send for culture due to unremarkable UA Will continue intravenous ceftriaxone for a total of 5 days Antibiotic course is done Anemia Hemoglobin 11.8 Do not have baseline labs Will check iron studies, vitamin B12 and folate levels stool for hemeoccult-pending Hemoglobin dropped to 9.4 from 11.8 without any evidence of bleeding Iron level has been low at 25 with saturation low at 8Will give intravenous and oral iron Will give another dose of IV iron Hemoglobin remains stable at 10.2 Will be given oral iron upon discharge KHUSHBOO pascual mony CKD Creatinine 1.9 Do not know baseline labs Holding Lasix and potassium supplement and also holding lisinopril Getting gentle fluids for 1 L Creatinine has been normalized - will check PRP tomorrow and electrolytes Alcoholism As per daughter patient drinks 1 beer daily and also 1 cup of whiskey daily Daughter does not think that he will go through withdrawal Will place on low risk alcohol protocol with as needed Ativan and monitor Will give him thiamine and folic acid Hyponatremia Sodium 130 Getting gentle fluids Will follow repeat labs-sodium is 132 Sodium level is almost normal at 134 Low phosphate and will be replaced Electrolytes have been normalized History of CAD status post stents On Coreg, Eliquis and statin History of A-fib On Coreg, digoxin and Eliquis Hypertension On Coreg Holding Lasix and lisinopril Will monitor Hyperlipidemia Statin Depression On Zoloft History of COPD Continue home inhalers Questionable Parkinson's Daughter does not think that he has Parkinson's Carbidopa and levodopa was prescribed for his tremors for possible Parkinson's per daughter Will continue current dose of carbidopa levodopa and have an outpatient neurology appointment on discharge. Dysphagia? per daughter possible difficulty swallowing will consult speech Possible CHF Patient is on Lasix which is held for now Monitor for volume overload Will follow echoLV is normal in size with mild concentric LVH basal septum is thickened and angulated consistent with sigmoid septum, EF 65 to 70%, LA severely dilated, right atrium is severely dilated, there is mild to moderate mitral regurgitation, there is moderate tricuspid regurgitation, right ventricular systolic pressure elevated to 30 to 40 mmHg No change of current medications DVT prophylaxis On Eliquis- Eliquis was on hold and will be continued Disposition Med/telemetry CODE STATUS okay for CPR but no life support as per my discussion with the daughter Discussed in detail with the daughter Awaiting placement Admission and Anticipated Discharge Date Admission Date: December 25, 2024 Subjective 12/26/2024 The patient was seen and examined in medical telemetry unit in presence of the daughter He has been feeling much better and does not have any more hallucination of auditory or visual Does not seems to be in any confusion and feeling better since admission Came in with frequent falls and will need PT OT evaluation 12/27/2024 The patient was seen and examined in medical telemetry unit He has been stable but remains pleasantly confused Has had more confusion last night but a little better this morning Denies any significant symptoms 12/28/2024 Patient was seen and examined in medical telemetry unit He remains pleasantly confused but denies any other significant symptoms Has been eating and drinking reasonably 12/30/2019 The patient was seen and examined in medical telemetry unit in presence of the daughter He has been feeling much better and seems to be at his best in the hospital Has had physical therapy and recommended home The daughter wants him to go to rehab the counter caser is working on it Review of Systems Review of Systems: All systems reviewed and are unremarkable except as noted below Physical Exam Physical Exam: Lying in bed without any acute distress Constitutional: well developed, well nourished, + ill appearing and average body habitus Eyes: PERRL, conjunctivae normal, anicteric sclerae ENMT: external ear and nose normal, oropharynx normal Neck: trachea midline, no thyromegaly Respiratory: + respiratory distress Cardiovascular: Rate/Rhythm: regular rate and regular rhythm; not tachycardic Heart Sounds: normal S1, normal S2 and + murmur Extremities: no edema Gastrointestinal (Abdomen): Inspection/Auscultation: normal bowel sounds; abdomen not distended Percussion/Palpation: abdomen soft; abdomen nontender Musculoskeletal: No acute arthritis involving any of the joint Neurologic: normal touch/pain/proprioception, moves all extremities, awake and + confused (Pleasantly confused); no focal motor deficits Lymphatic: no cervical or axillary lymphadenopathy Results & Data Results & Data Vital Signs (Past 12 Hours) Vital Signs Temp Pulse Pulse Resp BP BP Pulse Ox 12/29/24 11:26 36.3 C L 62 16 114/74 97 12/29/24 07:53 36.4 C L 59 L 16 125/67 97 12/29/24 07:37 74 12/29/24 04:02 36.4 C L 56 L 16 139/71 100 O2 Del Method 12/29/24 11:26 Room Air 12/29/24 07:53 Room Air 12/29/24 07:37 12/29/24 04:02 Room Air Laboratory Results Short CBC 12/29/24 Range/Units 07:30 WBC 7.68 (4.8-10.8) K/ul Hgb 10.2 L (14.0-18.0) g/dl Hct 30.4 L (42.0-52.0) % Plt Count 267 (130-400) K/uL BMP 12/29/24 07:30 Sodium 137 Potassium 3.9 Chloride 107 Carbon Dioxide 22 BUN 8 Creatinine 0.58 L Glucose 85 Calcium 9.2 Medications Administered Current Inpatient Medications Acetaminophen (Acetaminophen 325 Mg Tab) 650 mg PO Q4H PRN PRN Reason: Pain or Fever Stop: 01/25/25 02:10 Last Admin: 12/28/24 20:21 Dose: 650 mg Albuterol (Albuterol Hfa 8 Gm Inhaler) 2 puffs INH Q4H PRN PRN Reason: Shortness Of Breath Or Wheezin Stop: 01/25/25 02:38 Apixaban (Apixaban 2.5 Mg Tab) 2.5 mg PO BID [facility] Stop: 01/25/25 08:59 Apixaban (Apixaban 5 Mg Tablet) 5 mg PO BID [facility] Stop: 01/27/25 20:59 Last Admin: 12/29/24 09:23 Dose: Not Given Ascorbic Acid (Ascorbic Acid 500 Mg Tab) 250 mg PO DAILY [facility] Stop: 01/25/25 08:59 Last Admin: 12/29/24 09:22 Dose: 250 mg Carbidopa/Levodopa (Carbidopa/Levodopa 50/200mg Ext Rel Tab) 1 tab PO BID [facility] Stop: 01/25/25 08:59 Last Admin: 12/29/24 09:22 Dose: 1 tab Carvedilol (Carvedilol 3.125 Mg Tab) 3.125 mg PO BID [facility] Stop: 01/25/25 08:59 Last Admin: 12/29/24 09:23 Dose: Not Given Digoxin (Digoxin 0.125 Mg Tab) 0.125 mg PO DAILY@1600 [facility] Stop: 01/25/25 15:59 Last Admin: 12/28/24 17:13 Dose: 0.125 mg Fluticasone Furoate (Fluticasone Furoate 100mcg 14 Puffs/Inhaler) 1 puffs INH DAILY GHISLAINE Stop: 01/25/25 08:59 Last Admin: 12/29/24 09:20 Dose: 1 puffs Thiamine HCl 100 mg/ Syringe 10 mls @ 2 mls/min IV QAM GHISLAINE Stop: 01/25/25 08:59 Last Admin: 12/29/24 09:25 Dose: 2 mls/min Folic Acid 1 mg/ Syringe 10 mls @ 5 mls/min IV QAM GHISLAINE Stop: 01/25/25 08:59 Last Admin: 12/29/24 09:25 Dose: 5 mls/min Lorazepam (Lorazepam 1 Mg Tab) 1 mg PO UD PRN; Protocol PRN Reason: AWSS 6 & Above Stop: 01/25/25 02:10 Melatonin (Melatonin 3 Mg Tab) 3 mg PO HS PRN PRN Reason: Sleep Stop: 01/25/25 21:30 Last Admin: 12/28/24 20:21 Dose: 3 mg Multivitamins (Multivitamin Tab) 1 tab PO DAILY GHISLAINE Stop: 01/25/25 08:59 Last Admin: 12/29/24 09:21 Dose: 1 tab Niacin (Niacin Extended Rel 500 Mg Tabcr) 1,000 mg PO HS GHISLAINE Stop: 01/25/25 20:59 Last Admin: 12/28/24 20:22 Dose: 1,000 mg Nitroglycerin (Nitroglycerin Sl 0.4 Mg/Tab Tab) 0.4 mg SL Q5M PRN PRN Reason: Chest Pain Stop: 01/25/25 02:10 Pantoprazole Sodium (Pantoprazole 40 Mg Tab) 40 mg PO DAILY GHISLAINE Stop: 01/25/25 08:59 Last Admin: 12/29/24 09:21 Dose: 40 mg Polyethylene Glycol (Polyethylene (Miralax) 17 Gm Pack) 17 gm PO DAILY PRN PRN Reason: Constipation Stop: 01/25/25 02:10 Sertraline HCl (Sertraline Hcl 100 Mg Tablet) 100 mg PO DAILY GHISLAINE Stop: 01/25/25 08:59 Last Admin: 12/29/24 09:21 Dose: 100 mg Simvastatin (Simvastatin 40 Mg Tab) 40 mg PO HS GHISLAINE Stop: 01/25/25 20:59 Last Admin: 12/28/24 20:23 Dose: 40 mg Umeclidinium/Vilanterol (Umeclidinium/Vilanterol 62.5/25mcg 7 Puffs/Inhaler) 1 puffs INH QAM GHISLAINE Stop: 01/25/25 08:59 Last Admin: 12/29/24 09:20 Dose: 1 puffs Vitamin D (Cholecalciferol 25 Mcg (1000 Units) Tab) 50 mcg PO DAILY GHISLAINE Stop: 01/25/25 08:59 Last Admin: 12/29/24 09:21 Dose: 50 mcg
[2024-12-30] MEDS: THIAMINE HCL 100 MG TAB PO SCH (08:20)
[2024-12-30] MEDS: FOLIC ACID 1 MG TAB PO SCH (08:20)
--- NOTE | 2024-12-30 09:55 | Electrocardiogram Report ---
Test Reason : Blood Pressure : */* mmHG Vent. Rate : 65 BPM Atrial Rate : * BPM P-R Int : * ms QRS Dur : 96 ms QT Int : 414 ms P-R-T Axes : * -14 -36 degrees QTcB Int : 430 ms Atrial fibrillation Minimal voltage criteria for LVH, may be normal variant ( Joel product ) Septal infarct (cited on or before 25-Dec-2024) Inferior infarct (cited on or before 25-Dec-2024) Abnormal ECG When compared with ECG of 26-Dec-2024 08:41, No significant change Confirmed by Wally Kenny ([id number]) on 12/30/2024 9:55:26 AM Referred By: REFERRED SELF Confirmed By: Wally Kenny
--- NOTE | 2024-12-30 14:13 | Hospitalist Progress Note ---
Date of Service December 30, 2024 Assessment & Plan (1) Frequent falls: Plan: 84-year-old male with past medical history significant for CAD status post stents, A-fib, questionable Parkinson disease, hypertension, COPD, questionable CHF, GERD, hyperlipidemia, depression who lives alone and ambulates with rollator walker was brought in by daughter because of frequent falls and confusion. Daughter states last 1 month he fell 6 times. Yesterday after falling down he seemed somewhat confused and was taken to [facility]. After coming back home patient was hallucinating per daughter. He was seeing things in the house. Daughter was concerned something else was going on or possible infection and she brought him to the hospital today. As per daughter patient has no dementia. Patient is eating okay but daughter thinks he might be having some trouble swallowing. No recent fevers. No cough. Patient complain of some chest pain in his ribs area. No shortness of breath. No abdominal pain. Normal bowel and bladder movements. No runny nose or sore throat. Patient seems comfortable. Hemodynamics are okay. As per daughter patient currently drinking 1 beer daily and also 1 cup of whiskey daily. Daughter does not think that he will go through withdrawal. Patient PCP is Kael Wharton. 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 Pelvic x-ray no fractures CT head nonspecific ventriculomegaly query communicating hydrocephalus versus atrophy Cervical spine CT no acute fractures Clinically much better and denies any hallucinations and does not have any delirium Appreciate neurology neurology input and recommendationWill continue current dose of antiparkinsonian medication and get vitamin levels checked Appreciate urology input and recommendation for outpatient cystoscopy for possible bladder relations Appreciate vascular surgery input and recommendation for atherosclerotic aortic disease Discussed detail with the daughter Will get PT and OT evaluation and will need placement Clinically much better remains pleasantly confused without any other significant symptoms Remains medically stable but pleasantly confused Has had PT and recommended home Daughter wants him to go to rehab for short-term Remains medically stable to be transferred to a facility when approved Leukocytosis UA okay CT chest no obvious pneumonia Will follow blood cultures Empiric Rocephin for now Blood cultures have been negative and the urine was will not send for culture due to unremarkable UA Will continue intravenous ceftriaxone for a total of 5 days Antibiotic course is done Anemia Hemoglobin 11.8 Do not have baseline labs Will check iron studies, vitamin B12 and folate levels stool for hemeoccult-pending Hemoglobin dropped to 9.4 from 11.8 without any evidence of bleeding Iron level has been low at 25 with saturation low at 8Will give intravenous and oral iron Will give another dose of IV iron Hemoglobin remains stable at 10.2 Will be given oral iron upon discharge [id number] pascual mony CKD Creatinine 1.9 Do not know baseline labs Holding Lasix and potassium supplement and also holding lisinopril Getting gentle fluids for 1 L Creatinine has been normalized - will check PRP tomorrow and electrolytes Alcoholism As per daughter patient drinks 1 beer daily and also 1 cup of whiskey daily Daughter does not think that he will go through withdrawal Will place on low risk alcohol protocol with as needed Ativan and monitor Will give him thiamine and folic acid Hyponatremia Sodium 130 Getting gentle fluids Will follow repeat labs-sodium is 132 Sodium level is almost normal at 134 Low phosphate and will be replaced Electrolytes have been normalized-Check PRP tomorrow History of CAD status post stents On Coreg, Eliquis and statin History of A-fib On Coreg, digoxin and Eliquis Hypertension On Coreg Holding Lasix and lisinopril Will monitor Hyperlipidemia Statin Depression On Zoloft History of COPD Continue home inhalers Questionable Parkinson's Daughter does not think that he has Parkinson's Carbidopa and levodopa was prescribed for his tremors for possible Parkinson's per daughter Will continue current dose of carbidopa levodopa and have an outpatient neurology appointment on discharge. Does not have any parkinsonian tremors Dysphagia? per daughter possible difficulty swallowing will consult speech Possible CHF Patient is on Lasix which is held for now Monitor for volume overload Will follow echoLV is normal in size with mild concentric LVH basal septum is thickened and angulated consistent with sigmoid septum, EF 65 to 70%, LA severely dilated, right atrium is severely dilated, there is mild to moderate mitral regurgitation, there is moderate tricuspid regurgitation, right ventricular systolic pressure elevated to 30 to 40 mmHg No change of current medications DVT prophylaxis On Eliquis- Eliquis was on hold and will be continued Disposition Med/telemetry CODE STATUS okay for CPR but no life support as per my discussion with the daughter Discussed in detail with the daughter Awaiting placement Admission and Anticipated Discharge Date Admission Date: December 25, 2024 Subjective 12/26/2024 The patient was seen and examined in medical telemetry unit in presence of the daughter He has been feeling much better and does not have any more hallucination of auditory or visual Does not seems to be in any confusion and feeling better since admission Came in with frequent falls and will need PT OT evaluation 12/27/2024 The patient was seen and examined in medical telemetry unit He has been stable but remains pleasantly confused Has had more confusion last night but a little better this morning Denies any significant symptoms 12/28/2024 Patient was seen and examined in medical telemetry unit He remains pleasantly confused but denies any other significant symptoms Has been eating and drinking reasonably 12/30/2019 The patient was seen and examined in medical telemetry unit in presence of the daughter He has been feeling much better and seems to be at his best in the hospital Has had physical therapy and recommended home The daughter wants him to go to rehab the top case assembler is working on it 12/30/2024 The patient was seen and examined in medical telemetry unit He has been much better without any confusion Has had physical therapy and awaiting placement Review of Systems Review of Systems: All systems reviewed and are unremarkable except as noted below Physical Exam Physical Exam: Lying in bed without any acute distress Constitutional: well developed, well nourished, + ill appearing and average body habitus Eyes: PERRL, conjunctivae normal, anicteric sclerae ENMT: external ear and nose normal, oropharynx normal Neck: trachea midline, no thyromegaly Respiratory: + respiratory distress Cardiovascular: Rate/Rhythm: regular rate and regular rhythm; not tachycardic Heart Sounds: normal S1, normal S2 and + murmur Extremities: no edema Gastrointestinal (Abdomen): Inspection/Auscultation: normal bowel sounds; abdomen not distended Percussion/Palpation: abdomen soft; abdomen nontender Musculoskeletal: No acute arthritis involving any of the joint Neurologic: normal touch/pain/proprioception, moves all extremities, awake and + confused (Pleasantly confused); no focal motor deficits Lymphatic: no cervical or axillary lymphadenopathy Results & Data Results & Data Vital Signs (Past 12 Hours) Vital Signs Temp Pulse Pulse Resp BP Pulse Ox O2 Del Method 12/30/24 11:09 36.4 C L 65 16 114/68 96 Room Air 12/30/24 07:58 36.4 C L 84 16 134/65 96 Room Air 12/30/24 07:37 61 Medications Administered Current Inpatient Medications Acetaminophen (Acetaminophen 325 Mg Tab) 650 mg PO Q4H PRN PRN Reason: Pain or Fever Stop: 01/25/25 02:10 Last Admin: 12/29/24 20:04 Dose: 650 mg Albuterol (Albuterol Hfa 8 Gm Inhaler) 2 puffs INH Q4H PRN PRN Reason: Shortness Of Breath Or Wheezin Stop: 01/25/25 02:38 Apixaban (Apixaban 2.5 Mg Tab) 2.5 mg PO BID GHISLAINE Stop: 01/25/25 08:59 Apixaban (Apixaban 5 Mg Tablet) 5 mg PO BID GHISLAINE Stop: 01/27/25 20:59 Last Admin: 12/30/24 08:20 Dose: 5 mg Ascorbic Acid (Ascorbic Acid 500 Mg Tab) 250 mg PO DAILY GHISLAINE Stop: 01/25/25 08:59 Last Admin: 12/30/24 08:21 Dose: 250 mg Carbidopa/Levodopa (Carbidopa/Levodopa 50/200mg Ext Rel Tab) 1 tab PO BID GHISLAINE Stop: 01/25/25 08:59 Last Admin: 12/30/24 08:21 Dose: 1 tab Carvedilol (Carvedilol 3.125 Mg Tab) 3.125 mg PO BID GHISLAINE Stop: 01/25/25 08:59 Last Admin: 12/30/24 08:21 Dose: 3.125 mg Digoxin (Digoxin 0.125 Mg Tab) 0.125 mg PO DAILY@1600 GHISLAINE Stop: 01/25/25 15:59 Last Admin: 12/29/24 17:43 Dose: 0.125 mg Fluticasone Furoate (Fluticasone Furoate 100mcg 14 Puffs/Inhaler) 1 puffs INH DAILY GHISLAINE Stop: 01/25/25 08:59 Last Admin: 12/30/24 08:22 Dose: 1 puffs Folic Acid (Folic Acid 1 Mg Tab) 1 mg PO DAILY GHISLAINE Stop: 01/29/25 08:59 Last Admin: 12/30/24 08:20 Dose: 1 mg Lorazepam (Lorazepam 1 Mg Tab) 1 mg PO UD PRN; Protocol PRN Reason: AWSS 6 & Above Stop: 01/25/25 02:10 Melatonin (Melatonin 3 Mg Tab) 3 mg PO HS PRN PRN Reason: Sleep Stop: 01/25/25 21:30 Last Admin: 12/29/24 20:04 Dose: 3 mg Multivitamins (Multivitamin Tab) 1 tab PO DAILY GHISLAINE Stop: 01/25/25 08:59 Last Admin: 12/30/24 08:21 Dose: 1 tab Niacin (Niacin Extended Rel 500 Mg Tabcr) 1,000 mg PO HS GHISLAINE Stop: 01/25/25 20:59 Last Admin: 12/29/24 20:04 Dose: 1,000 mg Nitroglycerin (Nitroglycerin Sl 0.4 Mg/Tab Tab) 0.4 mg SL Q5M PRN PRN Reason: Chest Pain Stop: 01/25/25 02:10 Pantoprazole Sodium (Pantoprazole 40 Mg Tab) 40 mg PO DAILY GHISLAINE Stop: 01/25/25 08:59 Last Admin: 12/30/24 08:22 Dose: 40 mg Polyethylene Glycol (Polyethylene (Miralax) 17 Gm Pack) 17 gm PO DAILY PRN PRN Reason: Constipation Stop: 01/25/25 02:10 Sertraline HCl (Sertraline Hcl 100 Mg Tablet) 100 mg PO DAILY GHISLAINE Stop: 01/25/25 08:59 Last Admin: 12/30/24 08:22 Dose: 100 mg Simvastatin (Simvastatin 40 Mg Tab) 40 mg PO HS GHISLAINE Stop: 01/25/25 20:59 Last Admin: 12/29/24 20:05 Dose: 40 mg Thiamine HCl (Thiamine Hcl 100 Mg Tab) 100 mg PO DAILY GHISLAINE Stop: 01/29/25 08:59 Last Admin: 12/30/24 08:20 Dose: 100 mg Umeclidinium/Vilanterol (Umeclidinium/Vilanterol 62.5/25mcg 7 Puffs/Inhaler) 1 puffs INH QAM GHISLAINE Stop: 01/25/25 08:59 Last Admin: 12/30/24 08:22 Dose: 1 puffs Vitamin D (Cholecalciferol 25 Mcg (1000 Units) Tab) 50 mcg PO DAILY GHISLAINE Stop: 01/25/25 08:59 Last Admin: 12/30/24 08:21 Dose: 50 mcg
[2024-12-30 19:39] VITALS: RESP 18
[2024-12-31 07:27] LABS: Hematocrit (blood only) 28.2 % (42.0-52.0); Hemoglobin 9.6 g/dL (14.0-18.0); Immature Granulocytes # (auto) 0.04 K/uL (0.01-0.20); Immature Granulocytes % (auto) 0.5 %; Mean Corpuscular Hemoglobin 34.8 pg (25.0-34.0); Mean Corpuscular Volume 102.2 fL (80.0-100.0); Platelet Count 285 K/uL (130-400); RDW Standard Deviation 53.1 fL (36.4-46.3); Red Blood Count 2.76 M/uL (4.70-6.10); White Blood Count 7.80 K/ul (4.8-10.8)
[2024-12-31 07:44] VITALS: O2SAT 96
[2024-12-31 07:49] LABS: Anion Gap 5.0 (3-11); Blood Urea Nitrogen 11.0 mg/dl (6-23); Calcium 9.0 mg/dl (8.6-10.3); Carbon Dioxide 25.0 mmol/L (21-32); Chloride 107.0 mmol/L (98-107); Creatinine Clr Calc Pharmacy 100.7 ml/min; Glucose 93.0 mg/dl (70-99(Fasting)); Potassium 4.0 mmol/L (3.5-5.1); Sodium 137.0 mmol/L (136-145)
--- NOTE | 2024-12-31 11:19 | Hospitalist Progress Note ---
Date of Service December 31, 2024 Assessment & Plan (1) Frequent falls: Plan: 84-year-old male with past medical history significant for CAD status post stents, A-fib, questionable Parkinson disease, hypertension, COPD, questionable CHF, GERD, hyperlipidemia, depression who lives alone and ambulates with rollator walker was brought in by daughter because of frequent falls and confusion. Daughter states last 1 month he fell 6 times. Yesterday after falling down he seemed somewhat confused and was taken to [facility]. After coming back home patient was hallucinating per daughter. He was seeing things in the house. Daughter was concerned something else was going on or possible infection and she brought him to the hospital today. As per daughter patient has no dementia. Patient is eating okay but daughter thinks he might be having some trouble swallowing. No recent fevers. No cough. Patient complain of some chest pain in his ribs area. No shortness of breath. No abdominal pain. Normal bowel and bladder movements. No runny nose or sore throat. Patient seems comfortable. Hemodynamics are okay. As per daughter patient currently drinking 1 beer daily and also 1 cup of whiskey daily. Daughter does not think that he will go through withdrawal. Patient PCP is Kael Wharton. Frequent falls Left third, fourth rib fractures Ambulatory dysfunction Right gluteal intramuscular hematoma--secondary to fall: Conservative management --Chest CT:No pneumothorax or acute intrathoracic abnormality. LEFT 3rd and 4th rib fractures. Emphysema and chronic interstitial lung disease. 4 mm right upper lobe pulmonary nodule, no further workup needed. --CT ABD:Right gluteal intramuscular hematoma. Intermittent nodules anterior urinary bladder, nonspecific, could reflect normal variant anatomy, cystoscopy recommended to rule out neoplasm.. 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 No obvious signs to suggest posttraumatic injury in the abdomen or pelvis. Moderate limited evaluation due to artifact and noncontrast technique. Reorient frequently to minimize delirium SNF when accepted Bladder mass Right renal cyst CT scan as above H/O former smoker Appreciate urology input Needs outpatient cystoscopy for further evaluation Needs follow-up with urology on discharge Right upper lobe pulmonary nodule Incidental finding on CT scan Follow-up as outpatient Frequent falls Abnormal CT head: --CT head:. Nonspecific ventriculomegaly, query communicating hydrocephalus, versus atrophy with a central component. Mild, chronic white matter disease and a small, chronic subcortical right frontal lobe infarct. No skull fracture, bleed, or acute intracranial abnormality. 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 measuring 2.3 cm No indication for surgical intervention as per vascular surgery Follow-up as outpatient Leukocytosis No clear source of infection Empirically received IV Rocephin Resolved Anemia Do not have baseline labs Iron levels low stool for hemeoccult-pending Received IV iron Monitor CBC Will start on iron supplements on discharge Acute kidney injury Lasix, lisinopril, potassium supplements Renal function back to baseline Received IV fluid Monitor Alcoholism As per daughter patient drinks 1 beer daily and also 1 cup of whiskey daily Daughter does not think that he will go through withdrawal Will place on low risk alcohol protocol with as needed Ativan and monitor continue thiamine and folic acid Hyponatremia Resolved with IV fluids Monitor History of CAD status post stents On Coreg, Eliquis and statin History of A-fib On Coreg, digoxin and Eliquis Hypertension On Coreg Resume lisinopril when blood pressure more stable monitor Hyperlipidemia Statin Depression On Zoloft History of COPD Continue home inhalers Questionable Parkinson's Daughter does not think that he has Parkinson's Carbidopa and levodopa was prescribed for his tremors for possible Parkinson's per daughter Will continue current dose of carbidopa levodopa and have an outpatient neurology appointment on discharge. Does not have any parkinsonian tremors Dysphagia Evaluated by speech therapy Tolerating current diet Possible chronic diastolic CHF Patient is on Lasix which is held for now Monitor for volume overload ECHOLV is normal in size with mild concentric LVH basal septum is thickened and angulated consistent with sigmoid septum, EF 65 to 70%, LA severely dilated, right atrium is severely dilated, there is mild to moderate mitral regurgitation , there is moderate tricuspid regurgitation, right ventricular systolic pressure elevated to 30 to 40 mmHg No change of current medications DVT prophylaxis On Eliquis Disposition SNF CODE STATUS okay for CPR but no life support as per my discussion with the daughter Admission and Anticipated Discharge Date Admission Date: December 25, 2024 Subjective Patient is seen and examined at bedside Offers no specific complaints this morning Oriented to person and place today Denies any chest pain, dyspnea, nausea, vomiting, abdominal pain, dizziness Plan to be discharged to [facility] facility today Review of Systems Review of Systems: All systems reviewed & are unremarkable except as noted in Subjective Physical Exam Physical Exam: Physical Exam: Vitals signs as noted above General Appearance:Thin, frail, chronic ill appearing, no apparent distress Head: normocephalic, Atraumatic Eyes: normal inspection, EOMI Neck: supple, Trachea midline Respiratory/Chest: Normal breath sounds, CTA, No accessory muscle use Cardiovascular: S1, S2, + murmur Abdomen/GI:Soft, Non tender, Bowel sounds present Extremities/Musculoskeletal:normal inspection, Trace pedal edema Neurologic/Psych:AAOX2, grossly no focal neurological deficits Skin: normal color, warm Results & Data Results & Data Vital Signs (Past 12 Hours) Vital Signs Temp Pulse Pulse Resp BP Pulse Ox O2 Del Method 12/31/24 07:41 36.2 C L 66 18 116/60 96 Room Air 12/31/24 07:12 63 12/31/24 03:11 36.4 C L 73 18 137/68 92 Room Air Laboratory Results Short CBC 12/31/24 Range/Units 06:46 WBC 7.80 (4.8-10.8) K/ul Hgb 9.6 L (14.0-18.0) g/dL Hct 28.2 L (42.0-52.0) % Plt Count 285 (130-400) K/uL BMP 12/31/24 06:46 Sodium 137 Potassium 4.0 Chloride 107 Carbon Dioxide 25 BUN 11 Creatinine 0.57 L Glucose 93 Calcium 9.0
[2024-12-31 11:28] VITALS: BP 134/70; PULSE 60; TEMP 97.3
--- NOTE | 2024-12-31 11:29 | Discharge Summary ---
Date of Service December 31, 2024 Admission HPI Per Admitting Provider 84-year-old male with past medical history significant for CAD status post stents, A-fib, questionable Parkinson disease, hypertension, COPD, questionable CHF, GERD, hyperlipidemia, depression who lives alone and ambulates with rollator walker was brought in by daughter because of frequent falls and confusion. Daughter states last 1 month he fell 6 times. Yesterday after falling down he seemed somewhat confused and was taken to [facility]. After coming back home patient was hallucinating per daughter. He was seeing things in the house. Daughter was concerned something else was going on or possible infection and she brought him to the hospital today. As per daughter patient has no dementia. Patient is eating okay but daughter thinks he might be having some trouble swallowing. No recent fevers. No cough. Patient complain of some chest pain in his ribs area. No shortness of breath. No abdominal pain. Normal bowel and bladder movements. No runny nose or sore throat. Patient seems comfortable. Hemodynamics are okay. As per daughter patient currently drinking 1 beer daily and also 1 cup of whiskey daily. Daughter does not think that he will go through withdrawal. Patient PCP is Kael Wharton. Past medical history. As mentioned above. Past surgical history. Cardiac stent placement. Repair of ruptured lung twice. Cholecystectomy. Social history. Quit smoking . Prior to that smoked for many years. As per daughter currently drinks 1 beer daily and 1 cup of whiskey daily. Family history. Mother had pancreatic cancer. Sister had cancer. Admission Exam Per Admitting Provider General- Not in distress Head- atraumatic Eyes- PERRL. ENT- oropharynx clear Neck- supple, no JVD. Lungs- clear to auscultation no wheezing or crackles Heart- regular rhythm; no murmur, no gallop. Abdomen- normal bowel sounds, soft, nontender, no distension Extremities-b/l lower extremity edema present, no erythema seen Neuro- alert, oriented PERRL, no facial palsy; no dysarthria;obeys simple commands , moves extremities Principal Diagnosis Frequent falls Left third, fourth rib fractures Ambulatory dysfunction Right gluteal intramuscular hematoma Bladder mass Right renal cyst Right upper lobe pulmonary nodule Atherosclerosis of abdominal aorta with calcified dissection flap in the distal aortawith Calcified dissection flap in the distal aorta Acute kidney injury Alcohol use disorder Suspected Parkinson's disease Discharge Data Allergies Allergy/AdvReac Type Severity Reaction Status Date / Time No Known Allergies Allergy Verified 12/26/24 02:14 Consultations 12/26/24 00:01 ED Decision to Admit Stat 12/26/24 07:45 Consult Neurology Routine Consult Urology Routine 12/26/24 08:00 Consult Vascular Surgery Routine Procedures Performed Laboratory Results WBC 7.80 K/ul (4.8-10.8) 12/31/24 06:46 RBC 2.76 M/uL (4.70-6.10) L 12/31/24 06:46 Hgb 9.6 g/dL (14.0-18.0) L 12/31/24 06:46 POC Hgb 12.9 g/dl (14.0-18.0) L 12/25/24 19:54 Hct 28.2 % (42.0-52.0) L 12/31/24 06:46 POC Hct 38 % (42-52) L 12/25/24 19:54 MCV 102.2 fL (80.0-100.0) H 12/31/24 06:46 MCH 34.8 pg (25.0-34.0) H 12/31/24 06:46 MCHC 34.0 g/dL (32.0-36.0) 12/31/24 06:46 RDW Std Deviation 53.1 fL (36.4-46.3) H 12/31/24 06:46 RDW Coeff of Kandis 15.0 % (11.5-14.5) H 12/31/24 06:46 Plt Count 285 K/uL (130-400) 12/31/24 06:46 MPV 8.6 fL (9.4-12.4) L 12/31/24 06:46 Immature Gran % (Auto) 0.5 % 12/31/24 06:46 Neut % (Auto) 65.0 % 12/31/24 06:46 Lymph % (Auto) 22.2 % 12/31/24 06:46 [place] % (Auto) 9.0 % 12/31/24 06:46 Eos % (Auto) 2.9 % 12/31/24 06:46 Baso % (Auto) 0.4 % 12/31/24 06:46 Neut # (Auto) 5.07 K/uL (1.40-6.50) 12/31/24 06:46 Lymph # (Auto) 1.73 K/uL (1.20-3.40) 12/31/24 06:46 [place] # (Auto) 0.70 K/uL (0.11-0.59) H 12/31/24 06:46 Eos # (Auto) 0.23 K/uL (0.00-0.50) 12/31/24 06:46 Baso # (Auto) 0.03 K/uL (0.00-0.20) 12/31/24 06:46 Immature Gran # (Auto) 0.04 K/uL (0.01-0.20) 12/31/24 06:46 PT 11.5 Seconds (9.0-12.0) 12/25/24 19:47 INR 1.1 (0.9-1.1) 12/25/24 19:47 APTT 31 Seconds (21-31) 12/25/24 19:47 PTT Ratio 1.1 12/25/24 19:47 POC Sodium 131 mmol/L (135-144) L 12/25/24 19:54 Sodium 137 mmol/L (136-145) 12/31/24 06:46 POC Potassium 4.5 mmol/L (3.3-5.0) 12/25/24 19:54 Potassium 4.0 mmol/L (3.5-5.1) 12/31/24 06:46 POC Chloride 99 mmol/L (101-112) L 12/25/24 19:54 Chloride 107 mmol/L (98-107) 12/31/24 06:46 Carbon Dioxide 25 mmol/L (21-32) 12/31/24 06:46 POC Total CO2 22 mmol/L (24-31) L 12/25/24 19:54 Anion Gap 5 (3-11) 12/31/24 06:46 POC Anion Gap 16.0 mmol/L (16-25) 12/25/24 19:54 POC BUN 36 mg/dl (7-18) H 12/25/24 19:54 BUN 11 mg/dl (6-23) 12/31/24 06:46 Creatinine 0.57 mg/dl (0.6-1.4) L 12/31/24 06:46 POC Creatinine 2.2 mg/dl (0.6-1.3) H 12/25/24 19:54 Est Cr Clr Drug Dosing 100.7 ml/min 12/31/24 06:46 eGFR 95.48 12/31/24 06:46 BUN/Creatinine Ratio 19.3 (10-20) 12/31/24 06:46 Glucose 93 mg/dl (70-99(Fasting)) 12/31/24 06:46 POC Glucose (other) 129 mg/dl (70-99) H 12/25/24 19:54 Lactate 1.9 mmol/L (0.4-2.0) 12/25/24 19:47 Calcium 9.0 mg/dl (8.6-10.3) 12/31/24 06:46 POC Ioniz Calcium Jaya 1.24 mmol/l (1.12-1.32) 12/25/24 19:54 Phosphorus 2.5 mg/dl (2.5-4.9) 12/29/24 07:30 Magnesium 1.8 mg/dl (1.7-2.4) 12/29/24 07:30 Iron 25 mcg/dl (35-175) L 12/26/24 07:20 TIBC 323 mcg/dl (250-450) 12/26/24 07:20 Transferrin 231 mg/dl (200-360) 12/26/24 07:20 Transferrin % Sat 8 % (20-50) L 12/26/24 07:20 Total Bilirubin 1.0 mg/dl (0.2-1.0) 12/25/24 19:47 AST 20 U/L (13-39) 12/25/24 19:47 ALT < 3 U/L (7-52) L 12/25/24 19:47 Alkaline Phosphatase 83 U/L (34-104) 12/25/24 19:47 Total Creatine Kinase 52 U/L (30-223) 12/25/24 19:47 Troponin I High Sens 15.0 pg/ml (0-20) 12/26/24 07:20 Total Protein 7.5 gm/dl (6.0-8.3) 12/25/24 19:47 Albumin 3.6 gm/dl (3.4-5.0) 12/25/24 19:47 Globulin 3.9 gm/dl (2.5-4.0) 12/25/24 19:47 Albumin/Globulin Ratio 0.9 (0.9-2) 12/25/24 19:47 Lipase 17 U/L (11-82) 12/25/24 19:47 Vitamin B12 321 pg/ml (180-914) 12/26/24 07:20 Folate > 22.30 ng/ml (>5.38) 12/26/24 07:20 Procalcitonin 0.34 ng/ml (0-0.5) 12/25/24 19:47 Urine Color Dark Yellow 12/25/24 Unknown Urine Appearance Clear (Clear) 12/25/24 Unknown Urine pH 5.0 (4.5-7.5) 12/25/24 Unknown Ur Specific [place] 1.020 (1.000-1.030) 12/25/24 Unknown Urine Protein Negative (Negative) 12/25/24 Unknown Urine Glucose (UA) Negative (Negative) 12/25/24 Unknown Urine Ketones Trace (Negative) H 12/25/24 Unknown Urine Blood Negative (Negative) 12/25/24 Unknown Urine Nitrite Negative (Negative) 12/25/24 Unknown Urine Bilirubin Negative (Negative) 12/25/24 Unknown Urine Urobilinogen Negative (Negative) 12/25/24 Unknown Ur Leukocyte Esterase Trace (Negative) H 12/25/24 Unknown Urine WBC (Auto) 0-5 /hpf (0-5) 12/25/24 Unknown Urine RBC (Auto) 0-2 /hpf (0-2) 12/25/24 Unknown U Hyaline Cast (Auto) >20 /lpf (0-2) H 12/25/24 Unknown U Epithel Cells (Auto) 0-2 /hpf (0-2) 12/25/24 Unknown Urine Bacteria (Auto) None Seen (None Seen) 12/25/24 Unknown Hyaline Casts Present /lpf (None Presnt) A 12/25/24 Unknown Urine Comment 12/25/24 Unknown Digoxin 1.8 ng/ml (0.8-2.0) 12/25/24 19:47 Urine Opiates Screen Neg (Neg) 12/25/24 Unknown Ur Methadone, Qual Neg (Neg) 12/25/24 Unknown Urine Fentanyl Screen Neg (Neg) 12/25/24 Unknown Urine Barbiturates Neg (Neg) 12/25/24 Unknown Ur Phencyclidine (PCP) Neg (Neg) 12/25/24 Unknown U Amphetamin/Meth Scrn Neg (Neg) 12/25/24 Unknown MDMA (Ecstasy) Screen Neg (Neg) 12/25/24 Unknown U Benzodiazepines Scrn Pos (Neg) H 12/25/24 Unknown Ur Cocaine Metabolite Neg (Neg) 12/25/24 Unknown U Marijuana (THC) Screen Neg (Neg) 12/25/24 Unknown Ethyl Alcohol mg/dL < 10.0 mg/dl (<10.0) 12/25/24 20:44 Blood Type A Positive 12/25/24 19:50 Antibody Screen NEGATIVE 12/25/24 19:[address] 12/25/24 19:43 Exam(s): CT C SPINE EXAM: CT Cervical Spine Without Intravenous Contrast CLINICAL HISTORY: Reason for exam: Trauma. TECHNIQUE: Axial computed tomography images of the cervical spine without intravenous contrast. CTDI is 11.31 mGy and DLP is 800.92 mGy-cm. Automated exposure control was utilized for the study. A dose lowering technique was utilized adhering to the principles of ALARA. Mild motion artifact. COMPARISON: None. FINDINGS: Vertebrae: No acute fracture. Discs/spinal canal/neural foramina: Moderate to severe degenerative disc and facet disease. Soft tissues: Apical blebs and scarring on the right. IMPRESSION: 1. Moderate to severe degenerative change. 2. No fracture or acute bony abnormality. Electronically signed by: Cyndi Banda M.D. 12/25/24 21:54 PM Chest X-Ray 12/25/24 19:43 Exam(s): XR CXR 1 VIEW EXAM: XR Chest, 1 View CLINICAL HISTORY: Reason for exam: Trauma. TECHNIQUE: Frontal view of the chest. COMPARISON: None. Reference is made to a follow-up chest CT. FINDINGS: Lungs/Pleural space: Emphysema. Mild, scattered interstitial thickening, nonspecific, maybe chronic. Small right mid lung granuloma. No focal consolidation, pleural fluid or pneumothorax. Heart: Moderate cardiomegaly. Mediastinum: Unremarkable. Bones/Soft Tissues: Left 4th rib fracture, mildly displaced. IMPRESSION: 1. LEFT 4th rib fracture. 2. Emphysema and presumed chronic scattered interstitial thickening in the lungs. 3. No pneumothorax or acute process in the chest. Electronically signed by: Cyndi Banda M.D. 12/25/24 20:[address] 12/25/24 19:43 Exam(s): CT HEAD Without Contrast EXAM: CT Head Without Intravenous Contrast CLINICAL HISTORY: Reason for exam: trauma. TECHNIQUE: Axial computed tomography images of the head/brain without intravenous contrast. CTDI is 35.65 mGy and DLP is 702.46 mGy-cm. Automated exposure control was utilized for the study. A dose lowering technique was utilized adhering to the principles of ALARA. Mild to moderate limited evaluation due to motion and technique. COMPARISON: None. FINDINGS: Brain: Small, subcortical right frontal infarct. No mass, edema, mass effect or acute infarct. No acute hemorrhage. Mild, chronic, nonspecific white matter disease. There is artifact limiting detail particularly in the posterior fossa. Ventricles: Ventriculomegaly and dilated temporal horns maybe on the basis of central atrophy, can not exclude a communicating hydrocephalus. Correlate clinically. No midline shift. Bones/joints: No skull fracture. Soft tissues: No scalp hematoma. Visualized Sinuses: Clear. Mastoid air cells: No mastoid effusion. IMPRESSION: 1. Nonspecific ventriculomegaly, query communicating hydrocephalus, versus atrophy with a central component. 2. Mild, chronic white matter disease and a small, chronic subcortical right frontal lobe infarct. 3. No skull fracture, bleed, or acute intracranial abnormality. Electronically signed by: Cyndi Banda M.D. 12/25/24 20:36 PM Pelvis X-Ray 12/25/24 19:43 Exam(s): XR PELVIS, 1-2 views EXAM: XR Pelvis, 1 or 2 Views CLINICAL HISTORY: Reason for exam: Trauma. TECHNIQUE: Frontal view of the pelvis. COMPARISON: No relevant prior studies available. FINDINGS: Bones/joints: Moderate degenerative change lower lumbar spine, sacroiliac and hip joints. No acute fracture. No dislocation. Soft tissues: Surgical clips and sutures right lower quadrant. IMPRESSION: 1. No fracture or acute bony abnormality. Electronically signed by: Cyndi Banda M.D. 12/25/24 20:37 PM Abdomen/Pelvis CT 12/25/24 19:55 Exam(s): CT ABDOMEN + PELVIS Without Contrast EXAM: CT Abdomen and Pelvis Without Intravenous Contrast CLINICAL HISTORY: Reason for exam: trauma. TECHNIQUE: Axial computed tomography images of the abdomen and pelvis without intravenous contrast. CTDI is 11.31 mGy and DLP is 800.92 mGy-cm. Automated exposure control was utilized for the study. A dose lowering technique was utilized adhering to the principles of ALARA. Moderate limited evaluation due to arms in the field of view, external metal, breathing/motion and noncontrast technique. COMPARISON: None. FINDINGS: Liver: No injury. Gallbladder and bile ducts: Normal gallbladder. No ductal dilation. Pancreas: No ductal dilation. Spleen: No laceration. Adrenals: Unremarkable. Kidneys and ureters: No injury. Stomach and bowel: No obstruction. Intraperitoneal space: No free air or fluid. Bones/joints: No acute pelvic or vertebral fracture. Soft tissues: Probable 4-5 cm intramuscular gluteal hematoma on the right, though there is artifact from external metal, limiting evaluation. 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 Lymph nodes: No enlarged lymph nodes. Bladder: No injury. However, intermittent nodular density anterior midline mucosa, largest measuring 7 x 5 x 11 mm, nonspecific, could reflect normal variant anatomy, neoplasm not excluded. Reproductive: Unremarkable as visualized. IMPRESSION: 1. Right gluteal intramuscular hematoma. 2. Intermittent nodules anterior urinary bladder, nonspecific, could reflect normal variant anatomy, cystoscopy recommended to rule out neoplasm. 3. 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 4. No obvious signs to suggest posttraumatic injury in the abdomen or pelvis. 5. Moderate limited evaluation due to artifact and noncontrast technique. Electronically signed by: Cyndi Banda M.D. 12/25/24 20:[address] 12/25/24 19:55 Exam(s): CT CHEST Without Contrast EXAM: CT Chest Without Intravenous Contrast CLINICAL HISTORY: Reason for exam: trauma. TECHNIQUE: Axial computed tomography images of the chest without intravenous contrast. CTDI is 11.31 mGy and DLP is 800.92 mGy-cm. Automated exposure control was utilized for the study. A dose lowering technique was utilized adhering to the principles of ALARA. Moderate artifact from bilateral arms in the field of view and breathing/motion. COMPARISON: Same day chest x-ray. FINDINGS: Lungs: 4 mm noncalcified pulmonary nodule right upper lobe anteriorly, axial 11/08. Since the nodule is smooth, no follow up necessary per Fleischner guidelines. Calcified granuloma right upper lobe. Emphysema and moderate scattered chronic interstitial thickening, predominantly lower lobe lungs. No consolidation. Pleural space: No effusion. No pneumothorax, with moderate limited evaluation for minimal disease due to artifact. Pulmonary arteries: No engorgement. Aorta: No aneurysm. Heart: Moderate cardiomegaly. No significant pericardial effusion. Bones/joints: LEFT 4th rib fracture mildly displaced. Nondisplaced left 3rd rib fracture. No other acute fracture. Soft tissues: Unremarkable. Lymph nodes: No enlarged lymph nodes. IMPRESSION: 1. No pneumothorax or acute intrathoracic abnormality. 2. LEFT 3rd and 4th rib fractures. 3. Emphysema and chronic interstitial lung disease. 4. 4 mm right upper lobe pulmonary nodule, no further workup needed. 5. Moderate motion/artifact limits evaluation. Electronically signed by: Cyndi Banda M.D. 12/25/24 21:02 PM Ordered Studies 12/25/24 19:43 CT cervical spine wo con Stat CT head/brain wo con Stat 12/25/24 19:55 CT abd pelvis wo con Stat CT chest diagnostic wo con Stat Hospital Course (1) Frequent falls: 84-year-old male with past medical history significant for CAD status post stents, A-fib, questionable Parkinson disease, hypertension, COPD, questionable CHF, GERD, hyperlipidemia, depression who lives alone and ambulates with rollator walker was brought in by daughter because of frequent falls and confusion. Daughter states last 1 month he fell 6 times. Yesterday after falling down he seemed somewhat confused and was taken to [facility]. After coming back home patient was hallucinating per daughter. He was seeing things in the house. Daughter was concerned something else was going on or possible infection and she brought him to the hospital today. As per daughter patient has no dementia. Patient is eating okay but daughter thinks he might be having some trouble swallowing. No recent fevers. No cough. Patient complain of some chest pain in his ribs area. No shortness of breath. No abdominal pain. Normal bowel and bladder movements. No runny nose or sore throat. Patient seems comfortable. Hemodynamics are okay. As per daughter patient currently drinking 1 beer daily and also 1 cup of whiskey daily. Daughter does not think that he will go through withdrawal. Patient PCP is Kael Mcleod. Frequent falls Left third, fourth rib fractures Ambulatory dysfunction Right gluteal intramuscular hematoma--secondary to fall: Conservative management --Chest CT:No pneumothorax or acute intrathoracic abnormality. LEFT 3rd and 4th rib fractures. Emphysema and chronic interstitial lung disease. 4 mm right upper lobe pulmonary nodule, no further workup needed. --CT ABD:Right gluteal intramuscular hematoma. Intermittent nodules anterior urinary bladder, nonspecific, could reflect normal variant anatomy, cystoscopy recommended to rule out neoplasm.. 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 No obvious signs to suggest posttraumatic injury in the abdomen or pelvis. Moderate limited evaluation due to artifact and noncontrast technique. Reorient frequently to minimize delirium SNF when accepted Bladder mass Right renal cyst CT scan as above H/O former smoker Appreciate urology input Needs outpatient cystoscopy for further evaluation Needs follow-up with urology on discharge Right upper lobe pulmonary nodule Incidental finding on CT scan Follow-up as outpatient Frequent falls Abnormal CT head: --CT head:. Nonspecific ventriculomegaly, query communicating hydrocephalus, versus atrophy with a central component. Mild, chronic white matter disease and a small, chronic subcortical right frontal lobe infarct. No skull fracture, bleed, or acute intracranial abnormality. 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 measuring 2.3 cm No indication for surgical intervention as per vascular surgery Follow-up as outpatient Leukocytosis No clear source of infection Empirically received IV Rocephin Resolved Anemia Do not have baseline labs Iron levels low stool for hemeoccult-pending Received IV iron Monitor CBC Will start on iron supplements on discharge Acute kidney injury Lasix, lisinopril, potassium supplements Renal function back to baseline Received IV fluid Monitor Alcoholism As per daughter patient drinks 1 beer daily and also 1 cup of whiskey daily Daughter does not think that he will go through withdrawal Will place on low risk alcohol protocol with as needed Ativan and monitor continue thiamine and folic acid Hyponatremia Resolved with IV fluids Monitor History of CAD status post stents On Coreg, Eliquis and statin History of A-fib On Coreg, digoxin and Eliquis Hypertension On Coreg Resume lisinopril when blood pressure more stable monitor Hyperlipidemia Statin Depression On Zoloft History of COPD Continue home inhalers Questionable Parkinson's Daughter does not think that he has Parkinson's Carbidopa and levodopa was prescribed for his tremors for possible Parkinson's per daughter Will continue current dose of carbidopa levodopa and have an outpatient neurology appointment on discharge. Does not have any parkinsonian tremors Dysphagia Evaluated by speech therapy Tolerating current diet Possible chronic diastolic CHF Patient is on Lasix which is held for now Monitor for volume overload ECHOLV is normal in size with mild concentric LVH basal septum is thickened and angulated consistent with sigmoid septum, EF 65 to 70%, LA severely dilated, right atrium is severely dilated, there is mild to moderate mitral regurgitation, there is moderate tricuspid regurgitation, right ventricular systolic pressure elevated to 30 to 40 mmHg No change of current medications DVT prophylaxis On Eliquis Disposition SNF CODE STATUS okay for CPR but no life support as per my discussion with the daughter Total Time Total Time Spent Total Time Spent (In Minutes): 54 minutes Discharge Plan Discharge Items Patient Disposition: Transfer [facility] Reason For Visit: FALL CONFUSION Discharge Diagnosis: Frequent falls Left third, fourth rib fractures Ambulatory dysfunction Right gluteal intramuscular hematoma Bladder mass Right renal cyst Right upper lobe pulmonary nodule Atherosclerosis of abdominal aorta with calcified dissection flap in the distal aortawith Calcified dissection flap in the distal aorta Acute kidney injury Alcohol use disorder Suspected Parkinson's disease Condition on Discharge: Fair Activity: Per Instructions section Exercise/Sports: Gradually increase as tolerated Non-emergency contact: Primary Care Provider, Specialist, Neurologist and Urologist Call non-emergency contact if: you have any medication questions, your symptoms worsen, your pain is concerning for you and you have a fever Follow-up/Referrals: Mason Chen MD [Primary Care Provider] - Diet: Regular Diet Texture: Easy to Chew Addtl Attending Provider Instructions: -- Follow-up with your primary care physician Dr. Chen in 1 week upon discharge from rehab facility --Follow-up with your urologist Dr. Ocampo for further evaluation of bladder mass as recommended --Follow-up with your neurologist for further evaluation of suspected Parkinson's disease -- Consider following with vascular surgery as recommended Seek immediate medical attention if your symptoms reoccur or worsen Please review medication list provided on discharge for any medication changes as instructed. Please call if you have any questions or problems. You can reach a [facility] hospitalist on duty at [facility] 24 hours a day by calling [phone] Pending Studies at Discharge: No Stand-Alone Forms: [facility] Skilled Items Patient informed of condition?: Yes DNR: No Discharge Level of Care: Skilled Communicable Disease: No Discharge Prognosis: Stable Lines: None Urinary Catheter: No Medications and DC Order Prescriptions: New thiamine HCl (vitamin B1) 100 mg Tablet 100 mg PO DAILY Qty: 30 0RF Continued multivitamin Tablet 1 tab PO DAILY furosemide 40 mg tablet 40 mg PO DAILY niacin 1,000 mg tablet extended release 24 hr 1,000 mg PO HS carbidopa-levodopa 50-200 mg tablet extended release 1 tab PO BID sertraline 100 mg tablet 100 mg PO DAILY potassium chloride 10 mEq tablet extended release 10 meq PO DAILY simvastatin 40 mg tablet 40 mg PO HS carvedilol 3.125 mg tablet 3.125 mg PO BID ascorbic acid (vitamin C) 250 mg Tablet 250 mg PO DAILY pantoprazole 40 mg tablet,delayed release (DR/EC) 40 mg PO DAILY nitroglycerin 0.4 mg Tablet, Sublingual 0.4 mg sublingual UD Rx Instructions: prn chest pain q 5min x3 times and to call 911 digoxin 125 mcg (0.125 mg) tablet 125 mcg PO HS lisinopril 2.5 mg tablet 2.5 mg PO DAILY glucosamine-chondroitin [Osteo Bi-Flex] 250-200 mg Tablet 1 tab PO DAILY cholecalciferol (vitamin D3) 50 mcg (2,000 unit) Tablet 50 mcg PO DAILY Eliquis 5 mg tablet 5 mg PO BID albuterol sulfate 90 mcg/actuation Aerosol Powdr Breath Activated 2 inh INHALATION Q4H PRN (Reason: Shortness Of Breath Or Wheezing) Trelegy Ellipta 100-62.5-25 mcg blister with device 1 inh INHALATION DAILY Discharge Orders: Discharge Order (Routine); Ordered 12/31/24 Ordered By: Neal Omer Admission Data Admit Date/Time: 12/25/24 23:47 Attending Provider: Neal Omer Admit Provider: Mukesh Hager Primary Care Provider: Mason Chen Other Providers: Mukesh Hager; Jeevan Pichardo; Niecy Addison; Rodríguez Marr; Niecy Bennett; Pacheco Curtis; Rodriguez Rehman; Kieran Boo; Reinaldo Christensen; Perlita Preston; Zelalem Granados; Moris Mason; Alfredo Portillo; Tino Guevara; Laverne Blount; Reinaldo Mcnair; So Chambers; Doris Mariscal; Martina Da Silva; Ric Daniels; Jennifer Honeycutt; Gerardo Youngblood.; Sofy Vidal; Doris Tong.; Rico Vazquez; Milagro Faith.; Eren Lamb.; Vlad Mistry; Thiago Ocampo.; Tino Joaquin.; [facility]
[2024-12-31 15:42] LABS: 25 Hydroxy Vitamin D2+D3 72 ng/mL (30-100); Vit D, 25-OH, D2 <4 ng/mL; Vit D, 25-OH, D3 72 ng/mL
[2025-01-01 12:26] LABS: 7-Aminoclonaz, Confirm NEGATIVE ng/mL (<25); Hydro-Alp Ur, GC/MS NEGATIVE ng/mL (<25); Hydroxyethylflurazepam, Conf NEGATIVE ng/mL (<50); Hydroxymidazolam Ur, GC/MS NEGATIVE ng/mL (<50); Lorazepam, Ur GC/MS NEGATIVE ng/mL (<50); Nordiazepam, Confirm NEGATIVE ng/mL (<50); Oxazepam Ur, GC/MS NEGATIVE ng/mL (<50); Temazepam, Confirm NEGATIVE ng/mL (<50)
== END 2024-12-31 12:35 | DRG 183 ==
LOC: ED 19:21 → 2N 23:47 → SUATTDRO 23:47 → 2N 12-26 01:10